=== PATIENT | male | born 1955 | race Two or more races ===

== ENCOUNTER 2016-09-18 07:22 | Emergency (ER) | payer MEDICAID, OTHER ==
[~2016-09-18] VITALS: Wt 96.0 kg
[~2016-09-18 07:22] MED LIST: HYDR-906 PO; IBUP-1542 PO; NAPR-260 PO; PRED20TA PO; RTPRO; TRAM50TA2 PO
[2016-09-18] MEDS ORDERED: DEXAMETHASONE 10 MG/ML 1 ML INJ IM STA (08:20)
[2016-09-18] MEDS ORDERED: LEVALBUTEROL (NEB) 1.25 MG/0.5 ML AMP INH STA (08:20)
[2016-09-18] MEDS ORDERED: LEVALBUTEROL (NEB) 1.25 MG/0.5 ML AMP ONE (08:22)
--- NOTE | 2016-09-18 08:45 | ERD ---
ER Documentation Chief Complaint Date/Time DATE: 09/18/16 TIME: 08:33 Chief Complaint cough congestion and phleghm for 1 wk. no cp. no access mucle use HPI 60 year old male presents to ER with cough and nasal congestion x 1 week. Patient states cough is productive at times with clear sputum. Non bloody sputum. History of asthma and has been using Ventolin inhaler more frequently. Patient states cough is worse at night when he lays down. No shortness of breath or difficulty breathing. No chest pain. No sore throat or difficulty swallowing. Patient states he has similar symptoms to this at least once per year and receives a "cortisone shot" and he is better for the rest of the year. No fevers or chills. ROS All systems reviewed and are negative except as per history of present illness. Medications Home Meds Active Scripts Cetirizine Hcl* (Zyrtec*) 10 Mg Capsule, 10 MG PO DAILY, #10 TAB.CHEW Prov:SANDRO DEMPSEY NP 09/18/16 Prednisone* (Prednisone*) 20 Mg Tab, 40 MG PO DAILY for 4 Days, TAB Prov:SANDRO DEMPSEY NP 09/18/16 Albuterol Sulfate* (Proair HFA*) 8.5 Gm Hfa.aer.ad, 2 PUFF INH Q4, #1 INHALER Prov:SANDRO DEMPSEY NP 09/18/16 Prednisone* (Prednisone*) 20 Mg Tab, 40 MG PO DAILY for 4 Days, TAB Prov:SANDRO DEMPSEY NP 04/25/16 Hydrocodone/Acetaminophen ([place] 5-325 Tablet) 1 Each Tablet, 1 TAB PO Q6H Y for PAIN, #12 TAB Prov:MAX ROMAN PA-C 04/23/16 Tramadol HCl (Tramadol HCl) 50 Mg Tablet, 50 MG PO Q4 Y for PAIN, #20 TAB Prov:MAX ROMAN PA-C 04/23/16 Naproxen* (Naprosyn*) 500 Mg Tablet, 500 MG PO BID Y for PAIN AND/OR INFLAMMATION, #30 TAB Prov:KARI MILLER PA-C 07/01/15 Ibuprofen* (Motrin*) 600 Mg Tab, 600 MG PO Q6, #30 TAB Prov:WILLIAM ROSADO 06/20/15 Reported Medications Albuterol Sulfate* (Proventil* Neb) 3 Ml Nebu 08/16/09 Allergies Allergies: Coded Allergies: No Known Allergies (Verified Allergy, Mild, 07/01/15) PMhx/Soc History of Surgery: Yes (Meniscal tear repair) Anesthesia Reaction: No Hx Neurological Disorder: No Hx Respiratory Disorders: No Hx Cardiac Disorders: No Hx Psychiatric Problems: No Hx Miscellaneous Medical Probl: No Hx Alcohol Use: No Hx Substance Use: No Hx Tobacco Use: No Smoking Status: Never smoker Physical Exam Vitals Vital Signs Date Time Temp Pulse Resp B/P Pulse Ox O2 Delivery O2 Flow Rate FiO2 09/18/16 08:27 84 17 95 21 09/18/16 07:27 97.8 81 20 103/58 96 Physical Exam Const: Alert, [id number], smiling during exam Head: Atraumatic Eyes: Normal Conjunctiva ENT: Normal External Ears, Nose and Mouth. TMs normal bilaterally. No erythema or exudate posterior pharynx. Neck: Full range of motion..~ No meningismus. Resp: Clear to auscultation bilaterally. No wheezing, rhonchi or crackles. No labored breathing or stridor. No accessory muscle use. Cardio: Regular rate and rhythm, no murmurs Abd: Soft, non tender, non distended. Normal bowel sounds Skin: No petechiae or rashes Back: No midline or flank tenderness Ext: No cyanosis, or edema Neur: Awake and alert Psych: Normal Mood and Affect Results 24 hrs Current Medications Medications (Trade) Dose Ordered Sig/Martha Route PRN Reason Start Time Stop Time Status Last Admin Dose Admin Dexamethasone (Decadron) 10 mg ONCE STAT IM 09/18/16 08:20 09/18/16 08:21 DC 09/18/16 08:30 Levalbuterol (Xopenex Neb) 1.25 mg ONCE STAT INH 09/18/16 08:20 09/18/16 08:21 DC 09/18/16 08:26 Levalbuterol (Xopenex Neb) 1.25 mg STK-MED ONCE .ROUTE 09/18/16 08:22 09/18/16 08:23 DC Procedures/MDM ED COURSE: The patient was stable throughout ED course. I kept the patient and/or family informed of laboratory and diagnostic imaging results throughout the ED course. Xopenex breathing treatment. Decadron given MDM: This is a 60-year-old male who presents to the emergency department for cough and nasal congestion 1 week. No fevers or chills. No signs or symptoms of respiratory distress. Lung exam is unremarkable. ENT exam is unremarkable. No wheezing. Oxygen saturation 96% on room air. No labored breathing or stridor. No accessory muscle use. Patient denies chest pain or back pain. Patient states he is using his Ventolin inhaler or frequently at home. Patient states cough is worse at night when he lays down. Patient states he has similar symptoms once a year. Patient is requesting "cortisone shot" patient is given Xopenex breathing treatment and given Decadron 10 mg IM. Vital signs remained stable. Upon reassessment, patient states he is feeling much better. Low suspicion for pneumonia, pleural effusion or pneumothorax. Differential diagnosis includes but not limited to URI, influenza, asthma exacerbation or bronchitis.. Patient is appropriate for outpatient management and will be given prescription for pro-air inhaler, prednisone and Zyrtec. Instructed patient to follow-up with primary care provider in the next 2-3 days for reassessment and additional management. Return to ED for any high fever, chest pain, difficulty breathing, shortness breath, wheezing, vomiting, diarrhea, abdominal pain or any new or worsening symptoms. Patient verbalizes understanding. All questions answered at discharge. Departure Diagnosis: Primary Impression: URI (upper respiratory infection) URI type: unspecified viral URI Qualified Code: J06.9 - Viral upper respiratory tract infection Condition: Stable SANDRO DEMPSEY NP Sep 18, 2016 08:44
[2016-09-18] MEDS ORDERED: PRED20TA PO (09:05)
[2016-09-18] MEDS ORDERED: CETI10CA PO (09:05)
[2016-09-18] MEDS ORDERED: ALBU8.5H3 INH (09:05)
== END 2016-09-18 09:17 | disposition home or self-care (01) ==
LOC: FTE 07:22
DX: J06.9 Acute upper respiratory infection, unspecified (principal)
CPT/HCPCS: 94664; 96372; J1100; Z7502; Z7610

== ENCOUNTER 2016-12-01 08:25 | Emergency (ER) | payer MEDICAID ==
[~2016-12-01] VITALS: Ht 167.6 cm; Wt 95.5 kg
[~2016-12-01 08:25] MED LIST changes: +ALBU8.5H3 INH; +CETI10CA PO
[2016-12-01 08:27] VITALS: Ht 167.6 cm; Wt 95.5 kg
[2016-12-01] MEDS ORDERED: KETOROLAC 30 MG INJ IM STA (08:42)
[2016-12-01] MEDS ORDERED: HYDROCODONE/APAP (5/325) TAB PO ONE (09:00)
[2016-12-01] MEDS ORDERED: HYDR-906 PO (09:10)
--- NOTE | 2016-12-01 09:23 | ERD ---
ER Documentation Chief Complaint Date/Time DATE: 12/01/16 TIME: 09:20 Chief Complaint right knee pain x 3 days HPI 61-year-old male comes in with right-sided knee pain for the past 3 days. Patient reports that he has had an arthroscopic surgery on the left knee, and patient has also been evaluated by an orthopedist about a year ago on the right knee and has been told that he may need cortisone injections. He states that he was out doing some work the other day and he has developed some pain and has not gone away for the last 3 days. He has not had any recent trauma, is diffuse in the knee, worse with any weightbearing and better with rest. Patient reports is better with flexion. He has not had any fever with this. ROS All systems reviewed and are negative except as per history of present illness. Medications Home Meds Active Scripts Hydrocodone/Acetaminophen ([place] 5-325 Tablet) 1 Each Tablet, 1 TAB PO Q6H Y for PAIN, #20 TAB Prov:MAX ROMAN PA-C 12/01/16 Cetirizine Hcl* (Zyrtec*) 10 Mg Capsule, 10 MG PO DAILY, #10 TAB.CHEW Prov:SANDRO DEMPSEY NP 09/18/16 Prednisone* (Prednisone*) 20 Mg Tab, 40 MG PO DAILY for 4 Days, TAB Prov:SANDRO DEMPSEY NP 09/18/16 Albuterol Sulfate* (Proair HFA*) 8.5 Gm Hfa.aer.ad, 2 PUFF INH Q4, #1 INHALER Prov:SANDRO DEMPSEY NP 09/18/16 Prednisone* (Prednisone*) 20 Mg Tab, 40 MG PO DAILY for 4 Days, TAB Prov:SANDRO DEMPSEY NP 04/25/16 Hydrocodone/Acetaminophen ([place] 5-325 Tablet) 1 Each Tablet, 1 TAB PO Q6H Y for PAIN, #12 TAB Prov:MAX ROMAN PA-C 04/23/16 Tramadol HCl (Tramadol HCl) 50 Mg Tablet, 50 MG PO Q4 Y for PAIN, #20 TAB Prov:MAX ROMAN PA-C 04/23/16 Naproxen* (Naprosyn*) 500 Mg Tablet, 500 MG PO BID Y for PAIN AND/OR INFLAMMATION, #30 TAB Prov:KARI MILLER PA-C 07/01/15 Ibuprofen* (Motrin*) 600 Mg Tab, 600 MG PO Q6, #30 TAB Prov:WILLIAM ROSADO 06/20/15 Reported Medications Albuterol Sulfate* (Proventil* Neb) 3 Ml Nebu 08/16/09 Allergies Allergies: Coded Allergies: No Known Allergies (Verified Allergy, Mild, 07/01/15) PMhx/Soc History of Surgery: Yes (Meniscal tear repair) Anesthesia Reaction: No Hx Neurological Disorder: No Hx Respiratory Disorders: No Hx Cardiac Disorders: No Hx Psychiatric Problems: No Hx Miscellaneous Medical Probl: No Hx Alcohol Use: No Hx Substance Use: No Hx Tobacco Use: No Physical Exam Vitals Vital Signs Date Time Temp Pulse Resp B/P Pulse Ox O2 Delivery O2 Flow Rate FiO2 12/01/16 08:27 97.6 91 18 120/69 96 Physical Exam General: Well-developed, well-nourished. The patient appears in no acute distress. HEENT: Head is normocephalic, atraumatic. No scleral icterus. Neck: Supple. Nontender. Lungs: Clear to auscultation. Normal air movement. Heart: Regular rate and rhythm. S1 and S2 are normal. No murmurs, gallops, or rubs. Abdomen: Nondistended. Extremities: There is prepatellar swelling on the right knee, he is able to flex the knee to 90, patient does have difficulty with extension due to pain. There is no erythema or warmth. Negative Homans sign. Neurologic: Alert and oriented 3. No focal deficits. Normal speech and gait. Skin: Normal turgor. No rash or lesions. Results 24 hrs Current Medications Medications (Trade) Dose Ordered Sig/Martha Route PRN Reason Start Time Stop Time Status Last Admin Dose Admin Ketorolac Tromethamine (Toradol) 30 mg ONCE STAT IM 12/01/16 08:42 12/01/16 08:43 DC 12/01/16 09:05 Acetaminophen/ Hydrocodone Bitart ([place] (5/325)) 1 tab ONCE ONCE PO 12/01/16 09:00 12/01/16 09:01 DC 12/01/16 09:05 Procedures/MDM ED course: I am at this time I offered the patient x-rays of the knee, he states that he has had an x-ray about a year ago and reports that he discussed the findings with his orthopedist who recommended cortisone. He at this time was wondering if it would be possible to order an MRI, he does have his knee flexed in baseline position, he does not show any signs of septic arthritis I am doubtful that there is an abscess, septic joint or osteomyelitis. Given this I have asked him to follow-up with his orthopedist, progress further advanced imaging may be done with them and it can be done outpatient. He asks for pain control, he was given Toradol 30 mg IM, he was also given [place] 10/325 mg. MDM: 7-year-old male comes in with right-sided knee pain, likely due to chronic changes. There are no emergent signs or symptoms of an infectious origin or limb threatening process, and his pain is in the knee joint, there is no evidence of DVT on examination. I have asked him to follow-up with his orthopedist outpatient for further evaluation. He will be given a short course of [place] for pain control. Departure Diagnosis: Primary Impression: Knee pain Condition: Good Patient Instructions: Knee Pain, Uncertain Cause Additional Instructions: Call your ORTHOPEDIST TOMORROW for an appointment during the next 1 WEEK.See the doctor sooner or return here if your condition worsens before your appointment time. MAX ROMAN PA-C December 01, 2016 09:23
== END 2016-12-01 09:22 | disposition home or self-care (01) ==
LOC: FTE 08:25
DX: M25.561 Pain in right knee (principal)
CPT/HCPCS: 96372; J1885; Z7502; Z7610

== ENCOUNTER 2017-05-14 09:59 | Emergency (ER) | payer MEDICAID ==
[~2017-05-14] VITALS: Ht 167.6 cm; Wt 96.6 kg
[2017-05-14 10:06] VITALS: Ht 167.6 cm; Wt 96.6 kg
[2017-05-14] MEDS ORDERED: ACYC800T57 PO (10:43)
[2017-05-14] MEDS ORDERED: PRED20TA PO (10:43)
--- NOTE | 2017-05-14 10:45 | ERD ---
ER Documentation Chief Complaint Chief Complaint Complains of right sided facial pain x 3 days ago HPI 7-year-old male complains of some sensation of numbness and weakness on the right side of his face for the last 3 days. Denies any recent URIs although has a chronic cough. He states he had something similar several years ago and was told it was a virus. Denies any bowel or bladder incontinence, weakness of extremities, visual changes, fevers, vomiting. ROS All systems reviewed and are negative except as per history of present illness. Medications Home Meds Active Scripts Acyclovir* (Zovirax*) 800 Mg Tablet, 800 MG PO TID for 5 Days, TAB Prov:SARAH LAMAS MD 05/14/17 Prednisone* (Prednisone*) 20 Mg Tab, 40 MG PO DAILY for 4 Days, TAB Prov:SARAH LAMAS MD 05/14/17 Hydrocodone/Acetaminophen ([place] 5-325 Tablet) 1 Each Tablet, 1 TAB PO Q6H Y for PAIN, #20 TAB Prov:MAX ROMAN PA-C 12/01/16 Cetirizine Hcl* (Zyrtec*) 10 Mg Capsule, 10 MG PO DAILY, #10 TAB.CHEW Prov:SANDRO DEMPSEY NP 09/18/16 Prednisone* (Prednisone*) 20 Mg Tab, 40 MG PO DAILY for 4 Days, TAB Prov:SANDRO DEMPSEY NP 09/18/16 Albuterol Sulfate* (Proair HFA*) 8.5 Gm Hfa.aer.ad, 2 PUFF INH Q4, #1 INHALER Prov:SANDRO DEMPSEY NP 09/18/16 Prednisone* (Prednisone*) 20 Mg Tab, 40 MG PO DAILY for 4 Days, TAB Prov:SANDRO DEMPSEY NP 04/25/16 Hydrocodone/Acetaminophen ([place] 5-325 Tablet) 1 Each Tablet, 1 TAB PO Q6H Y for PAIN, #12 TAB Prov:MAX ROMAN PA-C 04/23/16 Tramadol HCl (Tramadol HCl) 50 Mg Tablet, 50 MG PO Q4 Y for PAIN, #20 TAB Prov:MAX ROMAN PA-C 04/23/16 Naproxen* (Naprosyn*) 500 Mg Tablet, 500 MG PO BID Y for PAIN AND/OR INFLAMMATION, #30 TAB Prov:KARI MILLERC 07/01/15 Ibuprofen* (Motrin*) 600 Mg Tab, 600 MG PO Q6, #30 TAB Prov:WILLIAM ROSADO 06/20/15 Reported Medications Albuterol Sulfate* (Proventil* Neb) 3 Ml Nebu 08/16/09 Allergies Allergies: Coded Allergies: No Known Allergies (Verified Allergy, Mild, 05/14/17) PMhx/Soc History of Surgery: Yes (Meniscal tear repair) Anesthesia Reaction: No Hx Neurological Disorder: No Hx Respiratory Disorders: No Hx Cardiac Disorders: No Hx Psychiatric Problems: No Hx Miscellaneous Medical Probl: Yes (daibetes mellitus) Hx Alcohol Use: No Hx Substance Use: No Hx Tobacco Use: No Smoking Status: Never smoker Physical Exam Vitals Vital Signs Date Time Temp Pulse Resp B/P Pulse Ox O2 Delivery O2 Flow Rate FiO2 05/14/17 10:06 96.6 85 20 146/64 95 Physical Exam Const: [], [id number]., Pleasant. Head: Atraumatic Eyes: Normal Conjunctiva. Eyes PERRLA and extraocular movements intact. ENT: Normal External Ears, Nose and Mouth. Neck: Full range of motion..~ No meningismus. Resp: Clear to auscultation bilaterally Cardio: Regular rate and rhythm, no murmurs Abd: Soft, non tender, non distended. Normal bowel sounds Skin: No petechiae or rashes Back: No midline or flank tenderness Ext: No cyanosis, or edema Neur: Awake and alert and right peripheral cranial nerve VII palsy. No cerebellar signs. Normal gait. Psych: Normal Mood and Affect Procedures/MDM Presents with signs and symptoms of Zheng's palsy. No appreciable signs or symptoms of meningitis, central lesions, additional emergent causes of presenting complaints. We treated with prednisone, acyclovir , primary care follow-up, return precautions and further observation at home. Patient is advised to cover eye at night, use eye wetting drops recheck for new or worsening symptoms or as directed with primary care doctor. The patient was stable with no new complaints during the ER course. Clinically, there is no current evidence to suggest meningitis, sepsis, acute abdomen, pneumonia, acute coronary syndrome, pulmonary embolism, or any other emergent condition appearing to require further evaluation or hospitalization. The patient should certainly return for any new or worsening symptoms per the aftercare instructions. They should otherwise follow-up with her primary care doctor for reevaluation this week. Departure Diagnosis: Primary Impression: Zheng's palsy Condition: Stable Patient Instructions: Zheng's Palsy Additional Instructions: May uncover eye at night and use artificial tears. Recheck with primary doctor or for new or worsening symptoms. SARAH LAMAS MD May 14, 2017 10:45
== END 2017-05-14 10:57 | disposition home or self-care (01) ==
LOC: FTE 09:59
DX: G51.0 Bell's palsy (principal); E11.9 Type 2 diabetes mellitus without complications
CPT/HCPCS: 99284

== ENCOUNTER 2017-06-16 20:36 | Emergency (ER) | payer MEDICAID ==
[~2017-06-16] VITALS: Ht 172.7 cm; Wt 99.0 kg
[~2017-06-16 20:36] MED LIST changes: +ACYC800T57 PO
[2017-06-16 21:04] VITALS: Ht 172.7 cm; Wt 99.0 kg
--- NOTE | 2017-06-16 21:30 | ERD ---
ER Documentation Chief Complaint Chief Complaint RIGHT LL SWELLING WITH PAIN ON CALF, DENIES CARDIAC PROBLEMS, +LETHARGY HPI Otherwise healthy 7-year-old male presenting with the chief complaints of right lower extremity pain and swelling 4 days. Describes pain 3/10 and worse with walking. Denies trauma, fever, similar symptoms in past, opening in skin. No recent travel. Has not taken any medications to relieve the symptoms. No daily medications. No other complaints describes no other associated manifestations. ROS All systems reviewed and are negative except as per history of present illness. Medications Home Meds Active Scripts Acyclovir* (Zovirax*) 800 Mg Tablet, 800 MG PO TID for 5 Days, TAB Prov:SARAH COBURN MD 05/14/17 Prednisone* (Prednisone*) 20 Mg Tab, 40 MG PO DAILY for 4 Days, TAB Prov:SARAH COBURN MD 05/14/17 Hydrocodone/Acetaminophen ([place] 5-325 Tablet) 1 Each Tablet, 1 TAB PO Q6H Y for PAIN, #20 TAB Prov:MAX ROMAN PA-C 12/01/16 Cetirizine Hcl* (Zyrtec*) 10 Mg Capsule, 10 MG PO DAILY, #10 TAB.CHEW Prov:SANDRO DEMPSEY NP 09/18/16 Prednisone* (Prednisone*) 20 Mg Tab, 40 MG PO DAILY for 4 Days, TAB Prov:SANDRO DEMPSEY NP 09/18/16 Albuterol Sulfate* (Proair HFA*) 8.5 Gm Hfa.aer.ad, 2 PUFF INH Q4, #1 INHALER Prov:SANDRO DEMPSEY NP 09/18/16 Prednisone* (Prednisone*) 20 Mg Tab, 40 MG PO DAILY for 4 Days, TAB Prov:SANDRO DEMPSEY NP 04/25/16 Hydrocodone/Acetaminophen ([place] 5-325 Tablet) 1 Each Tablet, 1 TAB PO Q6H Y for PAIN, #12 TAB Prov:MAX ROMAN PA-C 04/23/16 Tramadol HCl (Tramadol HCl) 50 Mg Tablet, 50 MG PO Q4 Y for PAIN, #20 TAB Prov:MAX ROMAN PA-C 04/23/16 Naproxen* (Naprosyn*) 500 Mg Tablet, 500 MG PO BID Y for PAIN AND/OR INFLAMMATION, #30 TAB Prov:KARI MILLER PA-C 07/01/15 Ibuprofen* (Motrin*) 600 Mg Tab, 600 MG PO Q6, #30 TAB Prov:WILLIAM ROSADO Patricia 06/20/15 Reported Medications Albuterol Sulfate* (Proventil* Neb) 3 Ml Nebu 08/16/09 Allergies Allergies: Coded Allergies: No Known Allergies (Verified Allergy, Mild, 06/16/17) PMhx/Soc History of Surgery: Yes (Meniscal tear repair) Anesthesia Reaction: No Hx Neurological Disorder: No Hx Respiratory Disorders: No Hx Cardiac Disorders: No Hx Psychiatric Problems: No Hx Miscellaneous Medical Probl: Yes (daibetes mellitus) Hx Alcohol Use: No Hx Substance Use: No Hx Tobacco Use: No Physical Exam Vitals Vital Signs Date Time Temp Pulse Resp B/P Pulse Ox O2 Delivery O2 Flow Rate FiO2 06/16/17 21:04 97.0 76 20 126/66 96 Physical Exam Const: Overweight 7-year-old male in NAD Head: Atraumatic Eyes: Normal Conjunctiva ENT: Normal External Ears, Nose and Mouth. Neck: Full range of motion..~ No meningismus. Resp: Clear to auscultation bilaterally Cardio: Regular rate and rhythm, no murmurs Abd: Soft, non tender, non distended. Normal bowel sounds Back: No midline or flank tenderness Ext: Mild swelling of the left lower extremity. No tenderness to palpation. No warmth. No rash. No TTP. Neur: Awake and alert Psych: Normal Mood and Affect Procedures/MDM Overweight but otherwise healthy 61-year-old male presents with a chief complaint of left lower extremity swelling. Presented the case my attending Dr. Coburn. Ultrasound was ordered and read as unremarkable. No tenderness palpation on physical exam. No erythema or warmth to suggest infection. I have no suspicion for cellulitis, other SBI, DVT, or other neurovascular compromise. Most likely diagnosis is pointed unknown etiology. I reviewed the case my attending who agrees with the assessment and plan. I have instructed the patient follow-up with his PCP in the next 2-3 days. Patient is stable and appropriate for discharge. Departure Diagnosis: Primary Impression: Swelling Condition: Stable Additional Instructions: Follow up with your PCP within the next 1-3 days for a more thorough evaluation and a possible referral to a specialist. Return the the emergency department immediately if symptoms worsen or change. If you have any questions regarding medications, ask your pharmacist or us before you leave. If any adverse reactions occur while taking your medications, discontinue the treatment and return to the emergency department immediately. Take your medications as directed, and complete the entire course of treatment. Comments DOS: 06/16/2017 NUBIA OLIVEIRA PA-C Jun 16, 2017 21:30
--- NOTE | 2017-06-16 22:26 | RADRPT ---
PROCEDURE: US Lower extremity Venous. CLINICAL INDICATION: Right leg swelling TECHNIQUE: Multiple sonographic images of the right lower extremity deep venous system was obtaine d utilizing grayscale, color-flow, compressive sonography and doppler imaging with augmentation. Th e images were reviewed on a PACS workstation. COMPARISON: None. FINDINGS: There is normal compressibility and flow within the right common femoral, deep femoral, superficial femoral and popliteal veins. The deep veins the calf were incompletely visualized. IMPRESSION: No sonographic evidence for deep venous thrombosis. .Berny Douglas MD, MD Date Time Electronically viewed and signed by .Berny Douglas MD, MD on 06/16/2017 22:26 .A/
== END 2017-06-16 23:03 | disposition home or self-care (01) ==
LOC: FTE 20:36
DX: R22.42 Localized swelling, mass and lump, left lower limb (principal); E11.9 Type 2 diabetes mellitus without complications
CPT/HCPCS: 93971; Z7502; 99284

== ENCOUNTER 2017-09-18 07:56 | Emergency (ER) | END 2017-09-18 12:33 | disposition home or self-care (01) ==

== ENCOUNTER 2017-10-02 15:25 | Inpatient (IN) | END 2017-10-05 18:05 | disposition home or self-care (01) | DRG 565 ==

== ENCOUNTER 2017-12-14 18:57 | Emergency (ER) | END 2017-12-14 22:23 | disposition home or self-care (01) ==

== ENCOUNTER 2018-02-18 19:56 | Emergency (ER) | END 2018-02-18 21:39 | disposition home or self-care (01) ==

== ENCOUNTER 2018-08-18 08:09 | Inpatient (IN) | payer MEDICAID ==
[~2018-08-18] VITALS: Ht 172.7 cm; Wt 95.0 kg
[~2018-08-18 08:09] MED LIST changes: -ACYC800T57 PO; +ALBU18HF INHALATION; -ALBU8.5H3 INH; -CETI10CA PO; -HYDR-906 PO; -IBUP-1542 PO; -NAPR-260 PO; -RTPRO; -TRAM50TA2 PO
[2018-08-18 08:14] VITALS: Ht 172.7 cm; Wt 95.0 kg
[2018-08-18] MEDS ORDERED: ALBUTEROL 0.083% (NEB) 2.5 MG/3 ML AMP NEB STA (08:22)
[2018-08-18] MEDS ORDERED: predniSONE 20 MG TAB PO STA (08:22)
[2018-08-18] MEDS ORDERED: IPRATROPIUM (NEB) 0.5 MG/2.5 ML AMP NEB STA (08:22)
[2018-08-18] MEDS ORDERED: ONDANSETRON 4 MG INJ IV PRN (09:30)
[2018-08-18] MEDS ORDERED: ACETAMINOPHEN 325 MG TAB PO PRN ×2 (09:30→12:00)
--- NOTE | 2018-08-18 09:48 | ERD ---
ER Documentation Chief Complaint Chief Complaint asthma exacerbation and sob x 1 month getting worse HPI Patient is a 62-year-old male with a history of asthma who presents with shortness of breath. His asthma has been worsening over the past 1 year and since May it was even worse. He has been wheezing diffusely. He has no fevers. He has dry cough. He has had frequent courses of prednisone which helps with his wheezing but once he stops the wheezing comes back. He just finished a course of prednisone 2 days ago and is wheezing again. Upon review of old medical records the patient has multiple visits for various complaints. He does not remember the name of his primary doctor. He does not currently have a netbackup admin. ROS All systems reviewed and are negative except as per history of present illness. Medications Home Meds Active Scripts Prednisone* (Prednisone*) 20 Mg Tab, 40 MG PO DAILY for 4 Days, TAB Prov:ROSALBA PINA MD 02/18/18 Albuterol Sulfate* (Ventolin HFA*) 18 Gm Hfa.aer.ad, 2 PUFF INHALATION Q4H, #1 INHALER Prov:KARISSA KIDD PA-C 12/14/17 Prednisone* (Prednisone*) 20 Mg Tab, 40 MG PO DAILY for 4 Days, TAB Prov:KARISSA KIDD PA-C 12/14/17 Allergies Allergies: Coded Allergies: No Known Allergies (Verified Allergy, Mild, 12/14/17) PMhx/Soc Anesthesia Reaction: No Hx Neurological Disorder: No Hx Respiratory Disorders: Yes (asthma) Hx Cardiac Disorders: No Hx Psychiatric Problems: No Hx Miscellaneous Medical Probl: No Hx Alcohol Use: No Hx Substance Use: No Hx Tobacco Use: No Smoking Status: Former smoker FmHx Family History: No diabetes Physical Exam Vitals Vital Signs Date Temp Pulse Resp B/P (MAP) Pulse Ox O2 O2 Flow FiO2 Time Delivery Rate 08/18/18 Nasal 2.0 08:40 Cannula 08/18/18 Nasal 2 08:40 Cannula 08/18/18 80 20 96 Nasal 2.0 08:34 Cannula 08/18/18 2.0 08:34 08/18/18 97.7 97 22 111/64 93 08:14 (80) Physical Exam Const: Moderate distress Head: Atraumatic Eyes: Normal Conjunctiva ENT: Normal External Ears, Nose and Mouth. Neck: Full range of motion. No meningismus. Resp: Diffuse wheezing in all lung burrows Cardio: Regular rate and rhythm, no murmurs Abd: Soft, non tender, non distended. Normal bowel sounds Skin: No petechiae or rashes Back: No midline or flank tenderness Ext: No cyanosis, or edema Neur: Awake and alert Psych: Normal Mood and Affect Result Diagram: 08/18/18 0900 08/18/18 0900 Results 24 hrs Laboratory Tests Test 08/18/18 09:00 White Blood Count 8.1 10^3/ul Red Blood Count 5.58 10^6/ul Hemoglobin 17.0 g/dl Hematocrit 50.5 % Mean Corpuscular Volume 90.5 fl Mean Corpuscular Hemoglobin 30.5 pg Mean Corpuscular Hemoglobin Concent 33.7 g/dl Red Cell Distribution Width 12.8 % Platelet Count 170 10^3/UL Mean Platelet Volume 10.7 fl Immature Granulocytes % 0.500 % Neutrophils % 69.0 % Lymphocytes % 17.2 % Monocytes % 6.2 % Eosinophils % 6.9 % Basophils % 0.2 % Nucleated Red Blood Cells % 0.0 /100WBC Immature Granulocytes # 0.040 10^3/ul Neutrophils # 5.6 10^3/ul Lymphocytes # 1.4 10^3/ul Monocytes # 0.5 10^3/ul Eosinophils # 0.6 10^3/ul Basophils # 0.0 10^3/ul Nucleated Red Blood Cells # 0.0 10^3/ul Sodium Level 136 mmol/L Potassium Level 4.0 mmol/L Chloride Level 100 mmol/L Carbon Dioxide Level 27 mmol/L Anion Gap 9 Blood Urea Nitrogen 16 mg/dl Creatinine 0.78 mg/dl Est Glomerular Filtrat Rate mL/min > 60 mL/min Glucose Level 328 mg/dl Calcium Level 9.1 mg/dl Troponin I < 0.012 ng/ml Current Medications Medications Dose Sig/Martha Start Time Status Last (Trade) Ordered Route PRN Stop Time Admin Dose Reason Admin Albuterol 5 mg ONCE STAT 08/18/18 DC 08/18/18 (Proventil NEB 08:22 08/18/18 08:33 0.083% (Neb)) 08:23 Ipratropium 0.5 mg ONCE STAT 08/18/18 DC 08/18/18 [place] NEB 08:22 08/18/18 08:33 (Atrovent 08:23 0.02% (Neb)) Prednisone 60 mg ONCE STAT 08/18/18 DC (Prednisone) PO 08:22 08/18/18 08:23 Ondansetron 4 mg BRIDGE ORDER 08/18/18 HCl (Zofran PRN IV 09:30 08/19/18 Inj) NAUSEA/VOMITI 09:29 NG 650 mg ER BRIDGE 08/18/18 Acetaminophen PRN PO 09:30 08/19/18 (Tylenol .MILD PAIN 09:29 Tab) 1-3 OR TEMP Procedures/MDM Chest X-ray 1V Interpreted by me: Soft Tissue: No acute abnormalities Bones: No acute abnormalities Mediastinum/Cardiac Silhouette/Lungs: No acute abnormalities EKG read by me: Rate/Rhythm: Regular rate and rhythm at a normal rate Intervals: Normal Impression: No evidence of ischemia or arrhythmia Patient is a 62-year-old male with asthma who presents with status asthmaticus. He has failed outpatient treatment at this time as he just finished a course of steroids but is still wheezing. The patient was given albuterol, Atrovent, and prednisone but the did refuse prednisone at this time as she is concerned as he just finished the prednisone. He was told by his primary doctor that he cannot keep getting steroids as it would be bad for him. I have requested a consult from Dr. Parham from pulmonology. I spoke with Dr. Nice from the panel team for admission to a medical surgical bed. I doubt pneumonia, pneumothorax, pulmonary embolism, or acute coronary syndrome. Departure Diagnosis: Primary Impression: Status asthmaticus Asthma severity: unspecified severity Asthma persistence: unspecified Qualified Codes: J45.902 - Unspecified asthma with status asthmaticus Additional Impression: Shortness of breath Condition: ELODIA Gunter MD Aug 18, 2018 09:48
--- NOTE | 2018-08-18 11:30 | NUR ---
NURSING NOTE: Pt arrived on gurney from ER, transferred to bed on own. Pt with audible wheezing, 2L O2 nasal cannula maintained. Brandy notified that pt on floor. Waiting for orders to be placed. Pt oriented to room, call quintanilla within reach, will continue to monitor and maintained hourly rounding.
[2018-08-18] MEDS ORDERED: NACL 0.9% 3 ML SYG IV SCH (12:00)
[2018-08-18] MEDS ORDERED: METHYLPREDNISOLONE 125 MG INJ IV ONE (12:00)
[2018-08-18] MEDS: ALBUTEROL/IPRATROPIUM (NEB) 3 ML AMP HHN SCH ×3 (12:12→21:14)
--- NOTE | 2018-08-18 12:16 | HP ---
Date/Time of Note Date/Time of Note DATE: 08/18/18 TIME: 12:08 Assessment/Plan VTE Prophylaxis SCD applied (from Nsg): Yes Pharmacological prophylaxis: LMWH Lines/Catheters IV Catheter Type (from Nrsg): Saline Lock Assessment/Plan Hospital Course SUBJECTIVE: Lying in bed, having wheezing, cough and increased work of breathing. OBJECTIVE: Vital signs-see below PHYSICAL EXAM: Constitutional: Well-developed, adequately built, lying in bed with wheezing, cough and slight increased work of breathing. Psych: nl mood/affect, no complaints Head: atraumatic, normocephalic Eyes: nl conjunctiva, nl sclera ENMT: mucosa pink and moist, nl external ears & nose Neck: non-tender, supple Respiratory: +Diffuse wheezing bilaterally. [place]ER[place]OD+ Cardiovascular: nl pulses, regular rate and rhythm Gastrointestinal: non-tender, soft, bowel sounds active in all 4 quadrants. Musculoskeletal/extremities: nl extremities to inspection, motor strength equal bilaterally, no focal deficit. Normal pulses,no cyanosis, no edema. Neurological: Alert oriented 3,nl speech, nl strength Skin: nl turgor ASSESSMENT/PLAN: 62-year-old male who is also a former smoker, diagnosed with asthma 2 years ago, here with worsening wheezing, SOB, cough. 1. Severe acute asthma exacerbation. -Start [id number] BERNARD w/DuoNeb, IV Solu-Medrol, Breo elipta, Singulair -Supplemental oxygen titrate to keep SPO2 above 92%. -Chest x-ray -Pulmonary consult 2. Hyperglycemia, likely steroid-induced -Denied history of diabetes. We will also obtain A1c. -At present, recommend insulin regimen as patient will be on steroids. 3. Obesity with BMI 31.8 -Weight reduction advised DVT prophylaxis: Lovenox PUD prophylaxis: Pepcid CODE STATUS: Full code Diet: Regular. Rest of the management depend on hospital course. Approximately 60 m spent on this history and physical. Patient was seen in collaboration with Result Diagram: 08/18/18 0900 08/18/18 0900 Results 24hrs Laboratory Tests Test 08/18/18 09:00 White Blood Count 8.1 Red Blood Count 5.58 Hemoglobin 17.0 Hematocrit 50.5 Mean Corpuscular Volume 90.5 Mean Corpuscular Hemoglobin 30.5 Mean Corpuscular Hemoglobin Concent 33.7 Red Cell Distribution Width 12.8 Platelet Count 170 # Mean Platelet Volume 10.7 H Immature Granulocytes % 0.500 H Neutrophils % 69.0 Lymphocytes % 17.2 Monocytes % 6.2 Eosinophils % 6.9 Basophils % 0.2 Nucleated Red Blood Cells % 0.0 Immature Granulocytes # 0.040 H Neutrophils # 5.6 Lymphocytes # 1.4 Monocytes # 0.5 Eosinophils # 0.6 H Basophils # 0.0 Nucleated Red Blood Cells # 0.0 Sodium Level 136 Potassium Level 4.0 Chloride Level 100 Carbon Dioxide Level 27 Anion Gap 9 Blood Urea Nitrogen 16 Creatinine 0.78 Est Glomerular Filtrat Rate mL/min > 60 Glucose Level 328 H Calcium Level 9.1 Troponin I < 0.012 HPI/ROS Admit Date/Time Admit Date/Time Aug 18, 2018 at 10:51 Hx of Present Illness 82-year-old male diagnosed with asthma 2 years ago, former smoker, here with worsening wheezing, shortness of breath, and nonproductive cough despite taking his rescue nebulizer. Patient was just treated with a cortisone couple weeks ago. In the ER, patient was noted with stable labs except for blood sugar 328. No chest x-ray done. Patient was given albuterol and prednisone 60 mg p.o. in the ER and was admitted. Patient denied chest pain, palpitation, nausea, vomiting, abdominal pain, speech difficulties, vision changes, dizziness, fever, chills or other constitutional symptoms. ROS A 12 point review of system was assessed and is negative other than what is mentioned in the HPI. PMH/Family/Social Past Medical History See HPI Medications Current Medications Albuterol/ Ipratropium (Duoneb) 3 ml Q4HWA RESP THERAPY HHN ; Start 08/18/18 at 13:00 Albuterol/ Ipratropium (Duoneb) 3 ml Q2H RESP THERAPY PRN HHN WHEEZING; Start 08/18/18 at 12:00 Methylprednisolone Sodium Succinate (Solu-Medrol) 60 mg Q6 IV ; Start 08/18/18 at 18:00 Magnesium Sulfate 50 ml @ 25 mls/hr ONCE ONCE IVPB ; Start 08/18/18 at 12:00; Stop 08/18/18 at 13:59; Status UNV Fluticasone/ Vilanterol (Breo Ellipta 200-25 Mcg Inh) 1 inh DAILY INH ; Start 08/18/18 at 14:00 Coded Allergies: No Known Allergies (Verified Allergy, Mild, 08/18/18) Past Surgical History None Past Surgical Hx: other Family History Significant Family History: no pertinent family hx Social History Former smoker, quit 22 years ago. Smoking Status: Former smoker Exam/Review of Systems Vital Signs Vitals Vital Signs Date Temp Pulse Resp B/P (MAP) Pulse Ox O2 O2 Flow FiO2 Time Delivery Rate 08/18/18 98.4 88 17 116/86 93 Nasal 2.0 10:05 (96) Cannula CELIA SERRATO NP Aug 18, 2018 12:16
[2018-08-18 12:47] VITALS: BP 131/62; PULSE 78; RESP 19
[2018-08-18] MEDS: ENOXAPARIN 40 MG/0.4 ML SYG SC SCH (13:20)
[2018-08-18] MEDS ORDERED: MAGNESIUM SULFATE 2 GM/50 ML 50 ML IVPB ONE (14:00)
[2018-08-18 14:51] VITALS: BP 128/60; PULSE 82; RESP 20
[2018-08-18] MEDS: FLUTICASONE/VILANTEROL 200-25 INH DEVICE INH SCH (15:14)
--- NOTE | 2018-08-18 17:25 | CONS ---
DATE OF ADMISSION: 08/18/2018 DATE OF CONSULTATION: TYPE OF CONSULTATION: Pulmonary. REASON FOR CONSULTATION: Shortness of breath. Thank you, Dr. Holder, for this consultation. HISTORY OF PRESENT ILLNESS: This is a 62-year-old gentleman with history of asthma, poorly controlle d for the past few months, who has been on prednisone multiple times, unable to taper without exacerb ation of his symptoms. It seems as though he has been on inadequate maintenance therapy. ALLERGIES: DENIES ANY HISTORY OF ALLERGIES. SOCIAL HISTORY: He is nonsmoker. No alcohol, no history of drug use. FAMILY HISTORY: Noncontributory. PAST SURGICAL HISTORY: No prior history of intubations or mechanical ventilation. PAST MEDICAL HISTORY: Significant for asthma. No history of inhalational lung injury. PHYSICAL EXAMINATION: GENERAL: Well-nourished, well-developed gentleman, comfortable at rest, talking in full and complete sentences. No accessory muscle use. VITAL SIGNS: Currently afebrile, pulse is 80, blood pressure 128/60, O2 saturation 93% on 2 liters. NECK: Supple. No JVD. No lymphadenopathy. CARDIAC: S1, S2. No added sounds or murmurs. CHEST: Diminished air entry bilaterally. ABDOMEN: Soft, nontender. No guarding or rebound. EXTREMITIES: No cyanosis, clubbing or edema. NEUROLOGIC: Grossly intact. No focal deficits. LABORATORY DATA: White count 8.1, hemoglobin 17, platelets of 170. BUN 16, creatinine 0.78. DIAGNOSTIC DATA: Chest x-ray shows mild bibasilar atelectasis. IMPRESSION AND PLAN: Likely acute asthma exacerbation with acute hypoxemic respiratory failure, poss ible viral etiology. The patient will require: 1. Bronchodilators. 2. Steroid taper. 3. I would recommend checking rapid influenza. 4. DVT and GI prophylaxis. Dictated By: LILIANA GALVIN MD SV/NTS Conf#: [id number] DID#: [id number] CC: LORI HOLDER MD;*EndCC*
[2018-08-18] MEDS: METHYLPREDNISOLONE 125 MG INJ IV SCH (17:56)
[2018-08-18] MEDS: INSULIN ASPART [NOVOLOG] 3 ML PEN SC SCH ×2 (18:13→21:21)
--- NOTE | 2018-08-18 18:45 | RADRPT ---
Echocardiogram Report Patient Name: CASEY HEatient ID: [id number] : 1955 (62y 9m)Study Date: 08/18/2018 2:14:03 PM Gender: MAccession #: [id number] Tech: Juarez Marte [facility] Location: [address] Ref.Physician: CELIA SERRATO Height(Cm): BSA: Weight(Kg): Quality: Technically Difficult StudyAccount #: Procedures: Echocardiographic Report: Transthoracic echocardiogram with complete 2D, M-Mode, and doppler examination. Indications: Shortness of breath. Measurements: 2D/M Mode Doppler Measurement Value Normal Range Measurement Value Normal Range LVIDd 2D 3.2 [ 4.2 - 5.8 ] cm AV Peak Conrad 1.2 [ 100.0 - 170.0 ] cm/sec LVIDs 2D 2.4 [ 2.5 - 4.0 ] cm AV Peak PG 6.0 [ 2.0 - 9.0 ] mmHg LVPWd 2D 1.2 [ 0.6 - 1.0 ] cm LVOT Peak Conrad 1.0 [ 70.0 - 110.0 ] cm/sec IVSd 2D 1.2 [ 0.6 - 1.0 ] cm LVOT Peak PG 4.0 [ 2.0 - 6.0 ] mmHg AoR Diam 2D 2.6 [ 2.6 - 3.4 ] cm MV E Peak Conrad 0.5 [ 60.0 - 130.0 ] cm/sec EDV 2D 41.9 [ 62.0 - 150.0 ] ml MV A Peak Conrad 0.8 [ 100.0 - 120.0 ] cm/sec ESV 2D 19.5 [ 21.0 - 61.0 ] ml MV E/A 0.6 [ 0.8 - 1.5 ] ratio EF 2D 53.5 [ 52.0 - 72.0 ] percent MV Decel Time 232 [ 104 - 258 ] msec LA Dimen 2D 2.8 [ 3.0 - 4.0 ] cm Lat E` Conrad 0.1 [ 10.0 - 15.0 ] cm/sec Lateral E/E` 5.9 [ 1.0 - 2.0 ] ratio Med E` Conrad 0.1 cm/sec MV E/A 0.6 [ 0.8 - 1.5 ] ratio TR Peak Conrad 2.2 [ 100.0 - 280.0 ] cm/sec TR Peak PG 20.0 mmHg RVSP 23.0 [ 10.0 - 36.0 ] mmHg Findings: Left Ventricle: Normal left ventricular systolic function. Normal left ventricular cavity size. Mild concentric left ventricular hypertrophy. Ejection fraction is visually estimated at 60 %. Tissue Doppler/Mitral Doppler indices are consistent with impaired relaxation (Stage I diastolic dysfunction). Right Ventricle: Normal right ventricular size. Normal right ventricular systolic function. Left Atrium: The left atrium is normal in size. Right Atrium: The right atrium is normal in size. Mitral Valve: Mild mitral leaflet calcification. Mild mitral annular calcification. Trace mitral regurgitation. Aortic Valve: Aortic valve not well visualized. Aortic cusps appear mildly calcified. Tricuspid Valve: Normal appearance of the tricuspid valve. Estimated peak PA systolic pressure 23 mmHg. There is trace tricuspid regurgitation. Pulmonic Valve: Pulmonic valve not well visualized. Pericardium: Normal pericardium with no significant pericardial effusion. Aorta: Normal aortic root. IVC: Normal size and normal respiratory collapse consistent with normal right atrial pressure. Conclusions: Normal left ventricular systolic function. Normal left ventricular cavity size. Mild concentric left ventricular hypertrophy. Ejection fraction is visually estimated at 60 %. Tissue Doppler/Mitral Doppler indices are consistent with impaired relaxation (Stage I diastolic dysfunction). Mild mitral leaflet calcification. Mild mitral annular calcification. Trace mitral regurgitation. Normal appearance of the tricuspid valve. Estimated peak PA systolic pressure 23 mmHg. There is trace tricuspid regurgitation. Electronically Signed By: Jeremy White 2018-08-18 18:44:28 PST
--- NOTE | 2018-08-18 18:55 | NUR ---
END OF SHIFT NOTE: Pt with no complaints of pain. Pt with continued wheezing and SOB with exertion, 2L O2 maintained. AccuCheck started at dinner, insulin given per sliding scale. VSS, call quintanilla within reach, hourly rounding maintained.
[2018-08-18 19:55] VITALS: BP 117/71; PULSE 80; RESP 20
[2018-08-18] MEDS: MONTELUKAST 10 MG TAB PO SCH (21:25)
[2018-08-18] MEDS: FAMOTIDINE 20 MG TAB PO SCH (21:25)
[2018-08-18] MEDS ORDERED: INSULIN ASPART [NOVOLOG] 3 ML PEN SC ONE (21:30)
--- NOTE | 2018-08-18 21:58 | NUR ---
RN NOTES blood sugar was elevated [address] Duncan ordered to give additional 6 unit s of novolog. To give NPH at midnight together with the solumedrol. Plan of care discuss to patient and .
[2018-08-19] MEDS ORDERED: NPH, HUMAN INSULIN ISOPHANE 3ML VIAL SC ONE
--- NOTE | 2018-08-19 00:34 | NUR ---
RN NOTES Patient refused the 30 mg Solumedrol and the 5 Units NPH. He stated that his breathing better now. Notified Dr Lr
[2018-08-19] MEDS: ACCU-CHEK XX SCH (02:00)
[2018-08-19 02:17] VITALS: BP 115/72; PULSE 77; RESP 17
[2018-08-19] MEDS ORDERED: INSULIN ASPART [NOVOLOG] 3 ML PEN SC ONE ×2 (02:30→22:30)
--- NOTE | 2018-08-19 02:30 | NUR ---
RN NOTES Blood sugar was [address] reyes ordered to give 6 units of Novolog
--- NOTE | 2018-08-19 05:53 | NUR ---
EOSS Patient alert, oriented no complained of pain. Vital sign stable on 2 Liters of O2 Breathing treatment given. Patient refused to have solumedrol due multiple side effects, explained the benefits for the asthma but still refused. BS was high MD awared covered with Trulilog. All needs attended, call light is within reach.
[2018-08-19] MEDS: METHYLPREDNISOLONE 125 MG INJ IV SCH ×2 (06:00)
[2018-08-19] MEDS: ALBUTEROL/IPRATROPIUM (NEB) 3 ML AMP HHN PRN (07:48)
[2018-08-19 08:02] VITALS: BP 116/71; PULSE 109; RESP 18
[2018-08-19] MEDS: INSULIN ASPART [NOVOLOG] 3 ML PEN SC SCH ×4 (08:44→21:22)
[2018-08-19] MEDS: FAMOTIDINE 20 MG TAB PO SCH ×2 (08:45→21:15)
[2018-08-19] MEDS: ENOXAPARIN 40 MG/0.4 ML SYG SC SCH (08:45)
[2018-08-19] MEDS: FLUTICASONE/VILANTEROL 200-25 INH DEVICE INH SCH (08:45)
[2018-08-19] MEDS: ALBUTEROL/IPRATROPIUM (NEB) 3 ML AMP HHN SCH ×4 (09:00→20:43)
--- NOTE | 2018-08-19 13:46 | CONS ---
Consult Date/Type/Reason Admit Date/Time Aug 18, 2018 at 10:51 Initial Consult Date Type of Consultation: Pulm Date/Time of Note DATE: 08/19/18 TIME: 13:44 Subjective Still mildly dyspneic with wheezing. Objective Vitals Vital Signs Date Temp Pulse Resp B/P (MAP) Pulse Ox O2 O2 Flow FiO2 Time Delivery Rate 08/19/18 104 22 92 13:29 08/19/18 97.3 116/71 Room Air 08:02 (86) 08/19/18 2.0 01:50 Intake and Output 08/18/18 08/18/18 08/19/18 1515:00 23:00 07:00 IntakeIntake Total 560 ml 500 ml OutputOutput Total 3 ml BalanceBalance 557 ml 500 ml Exam HEENT: Neck supple; no JVD; no LAD CVS: RRR, S1 and S2 CHEST: + exp wheezing b/l ABD: Soft, NT, + BS EXT: No c/c/e Results/Medications Result Diagram: 08/19/18 0455 08/19/18 0455 Results 24 hrs Laboratory Tests Test 08/18/18 17:54 08/18/18 20:54 08/19/18 00:14 08/19/18 02:12 Bedside Glucose 312 H 447 *H 316 H 315 H Test 08/19/18 04:55 08/19/18 08:37 08/19/18 12:54 White Blood Count 15.8 #H Red Blood Count 5.54 Hemoglobin 16.7 Hematocrit 50.0 Mean Corpuscular Volume 90.3 Mean Corpuscular 30.1 Hemoglobin Mean Corpuscular 33.4 Hemoglobin Concent Red Cell Distribution 12.6 Width Platelet Count 197 Mean Platelet Volume 10.3 Immature Granulocytes % 0.600 H Neutrophils % 92.8 H Lymphocytes % 5.6 L Monocytes % 0.9 Eosinophils % 0.0 Basophils % 0.1 Nucleated Red Blood 0.0 Cells % Immature Granulocytes # 0.100 H Neutrophils # 14.7 H Lymphocytes # 0.9 Monocytes # 0.1 L Eosinophils # 0.0 Basophils # 0.0 Nucleated Red Blood 0.0 Cells # Sodium Level 138 Potassium Level 4.4 Chloride Level 102 Carbon Dioxide Level 24 Anion Gap 12 Blood Urea Nitrogen 18 Creatinine 0.87 Est Glomerular Filtrat > 60 Rate mL/min Glucose Level 287 H Hemoglobin A1c 8.6 H Calcium Level 9.7 Phosphorus Level 2.3 L Magnesium Level 2.4 Total Bilirubin 1.0 Direct Bilirubin 0.00 Indirect Bilirubin 1.0 Aspartate Amino 21 Transf (AST/SGOT) Alanine 22 Aminotransferase (ALT/SG PT) Alkaline Phosphatase 136 H Total Protein 7.3 Albumin 4.2 Globulin 3.10 Albumin/Globulin Ratio 1.35 Triglycerides Level 69 Cholesterol Level 188 LDL Cholesterol, 121 Calculated HDL Cholesterol 53 Cholesterol/HDL Ratio 3.5 Thyroid Stimulating 0.100 L Hormone (TSH) Bedside Glucose 260 H 234 H Home Meds Active Scripts Albuterol Sulfate* (Ventolin HFA*) 18 Gm Hfa.aer.ad, 2 PUFF INHALATION Q4H, #1 INHALER Prov:KARISSA KIDD PA-C 12/14/17 Discontinued Scripts Prednisone* (Prednisone*) 20 Mg Tab, 40 MG PO DAILY for 4 Days, TAB Prov:ROSALBA PINA MD 02/18/18 Prednisone* (Prednisone*) 20 Mg Tab, 40 MG PO DAILY for 4 Days, TAB Prov:KARISSA KIDD PA-C 12/14/17 Medications Current Medications Albuterol/ Ipratropium (Duoneb) 3 ml Q4HWA RESP THERAPY HHN Last administered on 08/19/18 13:29; Admin Dose 3 ML; Start 08/18/18 at 13:00 Albuterol/ Ipratropium (Duoneb) 3 ml Q2H RESP THERAPY PRN HHN WHEEZING Last administered on 08/19/18 07:48; Admin Dose 3 ML; Start 08/18/18 at 12:00 Methylprednisolone Sodium Succinate (Solu-Medrol) 60 mg Q6 IV Last administered on 08/18/18at 17:56; Admin Dose 60 MG; Start 08/18/18 at 18:00 Fluticasone/ Vilanterol (Breo Ellipta 200-25 Mcg Inh) 1 inh DAILY INH Last administered on 08/18/18 15:14; Admin Dose 1 INH; Start 08/18/18 at 14:00 IV Flush (NS 3 ml) 3 ml PER PROTOCOL IV ; Start 08/18/18 at 12:00 Acetaminophen (Tylenol Tab) 650 mg Q6H PRN PO .PAIN 1-3 OR TEMP; Start 2/8/19 at 12:00 Famotidine (Pepcid) 20 mg Q12 PO Last administered on 08/18/18at 21:25; Admin Dose 20 MG; Start 08/18/18 at 21:00 Enoxaparin Sodium (Lovenox) 40 mg DAILY SC Last administered on 08/18/18at 13:20; Admin Dose 40 MG; Start 08/18/18 at 12:00 Diagnostic Test (Pha) (Accu-Chek) 1 02 XX ; Start 08/19/18 at 02:00 Insulin Aspart (Novolog Insulin Pen) NOVOLOG *MODERATE* ALGORITHM WITH MEALS BEDTIME SC Last administered on 08/19/18at 12:58; Admin Dose 6 UNIT; Start 08/18/18 at 17:55 Montelukast Sodium (Singulair) 10 mg HS PO Last administered on 08/18/18at 21:25; Admin Dose 10 MG; Start 08/18/18 at 21:00 Assessment/Plan Assessment/Plan (Daily) IMP: 1. Acute Asthma Exacerbation RECS: 1. Taper solumedrol 2. Need to ensure appropriate outpatient controller regimen to include ICS/LABA and LTRA FROLIAN TIPTON MD Aug 19, 2018 13:46
[2018-08-19 14:00] VITALS: BP 118/68; PULSE 85; RESP 18
--- NOTE | 2018-08-19 14:51 | PN ---
Date/Time of Note Date/Time of Note DATE: 08/19/18 TIME: 14:27 Assessment/Plan VTE Prophylaxis Risk score (from Ns)>0 risk: 4 SCD applied (from Ns): Yes SCD contraindicated: low risk/ambulating Pharmacological prophylaxis: heparin Lines/Catheters IV Catheter Type (from Nrs): Saline Lock Assessment/Plan Problems: (1) Status asthmaticus Status: Acute Comment: With intravenous steroids he is clearing up. Hopefully he will be better enough that he can be discharged in the next 24-48 hours but will have to take a [id number] approach. Curiously I had the opportunity speak to his . His had previously worked in allergy and immunology clinic. He had previously had allergy testing which was diffusely positive but has never undergone immunotherapy. Qualifiers: Asthma severity: unspecified severity Asthma persistence: unspecified Qualified Codes: J45.902 - Unspecified asthma with status asthmaticus (2) Asthma, severe persistent Status: Chronic Comment: Improving. He will need to be on controller medications including leukotriene receptor antagonist and combo inhaled steroids with long-acting beta agonist and possibly lama drugs as well Qualifiers: Asthma complication type: with status asthmaticus Qualified Codes: J45.52 - Severe persistent asthma with status asthmaticus (3) Diabetes mellitus type 2 in obese Status: Chronic Comment: Based on his A1c this is a chronic issue. I believe that when he is not on steroids is relatively minor. He needs to be on some medications. In the meantime while receiving steroids he will receive steroid dose matched NPH (4) Obesity (BMI 30.0-34.9) Status: Chronic Comment: Counseled Result Diagram: 08/19/18 0455 08/19/18 0455 Results 24hrs Laboratory Tests Test 08/18/18 17:54 08/18/18 20:54 08/19/18 00:14 08/19/18 02:12 Bedside Glucose 312 H 447 *H 316 H 315 H Test 08/19/18 04:55 08/19/18 08:37 08/19/18 12:54 White Blood Count 15.8 #H Red Blood Count 5.54 Hemoglobin 16.7 Hematocrit 50.0 Mean Corpuscular Volume 90.3 Mean Corpuscular 30.1 Hemoglobin Mean Corpuscular 33.4 Hemoglobin Concent Red Cell Distribution 12.6 Width Platelet Count 197 Mean Platelet Volume 10.3 Immature Granulocytes % 0.600 H Neutrophils % 92.8 H Lymphocytes % 5.6 L Monocytes % 0.9 Eosinophils % 0.0 Basophils % 0.1 Nucleated Red Blood 0.0 Cells % Immature Granulocytes # 0.100 H Neutrophils # 14.7 H Lymphocytes # 0.9 Monocytes # 0.1 L Eosinophils # 0.0 Basophils # 0.0 Nucleated Red Blood 0.0 Cells # Sodium Level 138 Potassium Level 4.4 Chloride Level 102 Carbon Dioxide Level 24 Anion Gap 12 Blood Urea Nitrogen 18 Creatinine 0.87 Est Glomerular Filtrat > 60 Rate mL/min Glucose Level 287 H Hemoglobin A1c 8.6 H Calcium Level 9.7 Phosphorus Level 2.3 L Magnesium Level 2.4 Total Bilirubin 1.0 Direct Bilirubin 0.00 Indirect Bilirubin 1.0 Aspartate Amino 21 Transf (AST/SGOT) Alanine 22 Aminotransferase (ALT/SG PT) Alkaline Phosphatase 136 H Total Protein 7.3 Albumin 4.2 Globulin 3.10 Albumin/Globulin Ratio 1.35 Triglycerides Level 69 Cholesterol Level 188 LDL Cholesterol, 121 Calculated HDL Cholesterol 53 Cholesterol/HDL Ratio 3.5 Thyroid Stimulating 0.100 L Hormone (TSH) Bedside Glucose 260 H 234 H Subjective 24 Hr Interval Summary Free Text/Dictation She reports he is feeling a little bit better and breathing a little bit easier. Constitutional: no complaints (No fevers chills or sweats) Respiratory: shortness of breath, wheezing Cardiovascular: no complaints Gastrointestinal: no complaints Genitourinary: no complaints Exam/Review of Systems Exam Vitals Vital Signs Date Temp Pulse Resp B/P (MAP) Pulse Ox O2 O2 Flow FiO2 Time Delivery Rate 08/19/18 104 22 92 13:29 08/19/18 97.3 116/71 Room Air 08:02 (86) 08/19/18 2.0 01:50 Intake and Output 08/18/18 08/18/18 08/19/18 1515:00 23:00 07:00 IntakeIntake Total 560 ml 500 ml OutputOutput Total 3 ml BalanceBalance 557 ml 500 ml Constitutional: alert, oriented Respiratory: normal air movement, wheezing Cardiovascular: regular rate and rhythm, nl pulses Results Results 24hrs Laboratory Tests Test 08/18/18 17:54 08/18/18 20:54 08/19/18 00:14 08/19/18 02:12 Bedside Glucose 312 H 447 *H 316 H 315 H Test 08/19/18 04:55 08/19/18 08:37 08/19/18 12:54 White Blood Count 15.8 #H Red Blood Count 5.54 Hemoglobin 16.7 Hematocrit 50.0 Mean Corpuscular Volume 90.3 Mean Corpuscular 30.1 Hemoglobin Mean Corpuscular 33.4 Hemoglobin Concent Red Cell Distribution 12.6 Width Platelet Count 197 Mean Platelet Volume 10.3 Immature Granulocytes % 0.600 H Neutrophils % 92.8 H Lymphocytes % 5.6 L Monocytes % 0.9 Eosinophils % 0.0 Basophils % 0.1 Nucleated Red Blood 0.0 Cells % Immature Granulocytes # 0.100 H Neutrophils # 14.7 H Lymphocytes # 0.9 Monocytes # 0.1 L Eosinophils # 0.0 Basophils # 0.0 Nucleated Red Blood 0.0 Cells # Sodium Level 138 Potassium Level 4.4 Chloride Level 102 Carbon Dioxide Level 24 Anion Gap 12 Blood Urea Nitrogen 18 Creatinine 0.87 Est Glomerular Filtrat > 60 Rate mL/min Glucose Level 287 H Hemoglobin A1c 8.6 H Calcium Level 9.7 Phosphorus Level 2.3 L Magnesium Level 2.4 Total Bilirubin 1.0 Direct Bilirubin 0.00 Indirect Bilirubin 1.0 Aspartate Amino 21 Transf (AST/SGOT) Alanine 22 Aminotransferase (ALT/SG PT) Alkaline Phosphatase 136 H Total Protein 7.3 Albumin 4.2 Globulin 3.10 Albumin/Globulin Ratio 1.35 Triglycerides Level 69 Cholesterol Level 188 LDL Cholesterol, 121 Calculated HDL Cholesterol 53 Cholesterol/HDL Ratio 3.5 Thyroid Stimulating 0.100 L Hormone (TSH) Bedside Glucose 260 H 234 H Medications Medication Current Medications Albuterol/ Ipratropium (Duoneb) 3 ml Q4HWA RESP THERAPY HHN Last administered on 08/19/18 13:29; Admin Dose 3 ML; Start 08/18/18 at 13:00 Albuterol/ Ipratropium (Duoneb) 3 ml Q2H RESP THERAPY PRN HHN WHEEZING Last administered on 08/19/18 07:48; Admin Dose 3 ML; Start 08/18/18 at 12:00 Fluticasone/ Vilanterol (Breo Ellipta 200-25 Mcg Inh) 1 inh DAILY INH Last administered on 08/18/18 15:14; Admin Dose 1 INH; Start 08/18/18 at 14:00 IV Flush (NS 3 ml) 3 ml PER PROTOCOL IV ; Start 08/18/18 at 12:00 Acetaminophen (Tylenol Tab) 650 mg Q6H PRN PO .PAIN 1-3 OR TEMP; Start 08/18/18 at 12:00 Famotidine (Pepcid) 20 mg Q12 PO Last administered on 08/18/18at 21:25; Admin Dose 20 MG; Start 08/18/18 at 21:00 Enoxaparin Sodium (Lovenox) 40 mg DAILY SC Last administered on 08/18/18at 13:20; Admin Dose 40 MG; Start 08/18/18 at 12:00 Diagnostic Test (Pha) (Accu-Chek) 1 ea 02 XX ; Start 08/19/18 at 02:00 Insulin Aspart (Novolog Insulin Pen) NOVOLOG *MODERATE* ALGORITHM WITH MEALS BEDTIME SC Last administered on 08/19/18at 12:58; Admin Dose 6 UNIT; Start 08/18/18 at 17:55 Montelukast Sodium (Singulair) 10 mg HS PO Last administered on 08/18/18at 21:25; Admin Dose 10 MG; Start 08/18/18 at 21:00 Methylprednisolone Sodium Succinate (Solu-Medrol) 40 mg Q8 IV ; Start 08/19/18 at 15:00 Insulin Human NPH (Humulin N) 8 unit Q8 SC ; Start 08/19/18 at 22:00; Status ISIDRO BENOIT MD Aug 19, 2018 14:51
[2018-08-19] MEDS: METHYLPREDNISOLONE 40 MG INJ IV SCH ×2 (16:46→21:15)
[2018-08-19] MEDS: NPH, HUMAN INSULIN ISOPHANE 3ML VIAL SC SCH ×2 (16:48→21:21)
--- NOTE | 2018-08-19 17:47 | NUR ---
Nutrition consult: Pt interested in learning more about DM as he found out his A1C was 8.6. Pt also taking steroids which may have contributed to his elevated A1C. Pt meets dx criteria for type 2 DM. Pt reports to eating a lot of vegetables and fish and occasionally meat but not a lot of carbohydrates. He said that he ate a lot more during his 40s but doesn't eat much anymore. He also mostly cooks at home so he can see what ingredients go into his food. He doesn't drink beer, soda, juice, but has some Gatorade when he's working on the job and is sweating a lot. His diet was changed to a carb controlled diet. RD emphasized consuming more vegetables and being careful of carbohydrates. Related handouts provided and all nutrition related questions answered. RD remains available.
--- NOTE | 2018-08-19 18:47 | NUR ---
END OF SHIFT REPORT: Pt with no complaints of pain. Pt with continued q4 breathing treatments. AccuCheck done ACHS, NHS added to be given with SoluMedrol. Water Quality Manager to the bedside per pt request. VSS, call quintanilla within reach, hourly rounding maintained.
[2018-08-19 19:25] VITALS: BP 119/65; PULSE 89; RESP 18
[2018-08-19] MEDS: MONTELUKAST 10 MG TAB PO SCH (21:15)
[2018-08-20 02:00] VITALS: BP 117/69; PULSE 88; RESP 18
[2018-08-20] MEDS: ACCU-CHEK XX SCH ×3 (02:00→21:28)
--- NOTE | 2018-08-20 05:08 | NUR ---
END OF SHIFT NOTE: PATIENT IS A AND O X 4; NOT IN DISTRESS. VS IS WNL; ALL MEDICATIONS HAVE BEEN GIVEN ORDERED AND PRN; ALL NEEDS ATTENDED; CALL LIGHT WITHIN REACH ; WILL ENDORSE TO THE DAY SHIFT RN
[2018-08-20] MEDS: METHYLPREDNISOLONE 40 MG INJ IV SCH ×3 (06:18→21:18)
[2018-08-20] MEDS: NPH, HUMAN INSULIN ISOPHANE 3ML VIAL SC SCH ×3 (06:18→21:22)
[2018-08-20] MEDS: ALBUTEROL/IPRATROPIUM (NEB) 3 ML AMP HHN PRN (06:19)
[2018-08-20 08:07] VITALS: BP 109/69; PULSE 85; RESP 18
[2018-08-20] MEDS: INSULIN ASPART [NOVOLOG] 3 ML PEN SC SCH ×4 (08:56→21:21)
[2018-08-20] MEDS: FLUTICASONE/VILANTEROL 200-25 INH DEVICE INH SCH (08:56)
[2018-08-20] MEDS: ENOXAPARIN 40 MG/0.4 ML SYG SC SCH (08:57)
[2018-08-20] MEDS: FAMOTIDINE 20 MG TAB PO SCH ×2 (08:57→21:17)
[2018-08-20] MEDS: ALBUTEROL/IPRATROPIUM (NEB) 3 ML AMP HHN SCH ×4 (09:12→20:44)
--- NOTE | 2018-08-20 11:19 | PN ---
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 And can add in long-acting muscarinic agonist as Spiriva and follow him along. Ultimately as an outpatient once he settled down he should be evaluated for allergy testing, and whether or not he is a candidate for some of the other drugs based on immunoglobulin levels and eosinophil level Qualifiers: Asthma complication type: with status asthmaticus Qualified Codes: J45.52 - Severe persistent asthma with status asthmaticus (2) Diabetes mellitus type 2 in obese Status: Chronic Comment: Adjust medications to cover for the steroids (3) Obesity (BMI 30.0-34.9) Status: Chronic Comment: Counseled Result Diagram: 08/19/18 0455 08/19/18 0455 Results 24hrs Laboratory Tests Test 08/19/18 12:54 08/19/18 16:44 08/19/18 18:24 08/19/18 21:14 Bedside Glucose 234 H 223 H 265 H 363 H Test 08/19/18 22:32 08/20/18 01:49 08/20/18 06:15 08/20/18 08:20 Bedside Glucose 358 H 325 H 261 H 290 H Subjective 24 Hr Interval Summary Free Text/Dictation She reports his breathing is a little bit better but when he tried to shower today he became significantly short of breath and used his own inhalers that he had brought from home. Constitutional: no complaints Respiratory: cough, shortness of breath, wheezing Cardiovascular: no complaints Gastrointestinal: no complaints Genitourinary: no complaints Musculoskeletal: no complaints Exam/Review of Systems Exam Vitals Vital Signs Date Temp Pulse Resp B/P (MAP) Pulse Ox O2 O2 Flow FiO2 Time Delivery Rate 08/20/18 97 18 94 21 09:33 08/20/18 97.7 109/69 Room Air 08:07 (82) 08/19/18 2.0 01:50 Intake and Output 08/19/18 08/19/18 08/20/18 1515:00 23:00 07:00 IntakeIntake Total 500 ml 1050 ml OutputOutput Total 980 ml BalanceBalance 500 ml 70 ml Constitutional: alert, oriented Neck: supple, non-tender Respiratory: normal air movement, wheezing Cardiovascular: regular rate and rhythm, nl pulses Results Results 24hrs Laboratory Tests Test 08/19/18 12:54 08/19/18 16:44 08/19/18 18:24 08/19/18 21:14 Bedside Glucose 234 H 223 H 265 H 363 H Test 08/19/18 22:32 08/20/18 01:49 08/20/18 06:15 08/20/18 08:20 Bedside Glucose 358 H 325 H 261 H 290 H Medications Medication Current Medications Albuterol/ Ipratropium (Duoneb) 3 ml Q4HWA RESP THERAPY HHN Last administered on 08/20/18at 09:12; Admin Dose 3 ML; Start 08/18/18 at 13:00 Albuterol/ Ipratropium (Duoneb) 3 ml Q2H RESP THERAPY PRN HHN WHEEZING Last administered on 08/20/18at 06:19; Admin Dose 3 ML; Start 08/18/18 at 12:00 Fluticasone/ Vilanterol (Breo Ellipta 200-25 Mcg Inh) 1 inh DAILY INH Last administered on 08/20/18at 08:56; Admin Dose 1 INH; Start 08/18/18 at 14:00 IV Flush (NS 3 ml) 3 ml PER PROTOCOL IV ; Start 08/18/18 at 12:00 Acetaminophen (Tylenol Tab) 650 mg Q6H PRN PO .PAIN 1-3 OR TEMP; Start 08/18/18 at 12:00 Famotidine (Pepcid) 20 mg Q12 PO Last administered on 08/20/18at 08:57; Admin Dose 20 MG; Start 08/18/18 at 21:00 Enoxaparin Sodium (Lovenox) 40 mg DAILY SC Last administered on 08/20/18at 08:57; Admin Dose 40 MG; Start 08/18/18 at 12:00 Diagnostic Test (Pha) (Accu-Chek) 1 ea 02 XX ; Start 08/19/18 at 02:00 Insulin Aspart (Novolog Insulin Pen) NOVOLOG *MODERATE* ALGORITHM WITH MEALS BEDTIME SC Last administered on 08/20/18 08:56; Admin Dose 8 UNIT; Start 08/18/18 at 17:55 Montelukast Sodium (Singulair) 10 mg HS PO Last administered on 08/19/18at 21:15; Admin Dose 10 MG; Start 08/18/18 at 21:00 Methylprednisolone Sodium Succinate (Solu-Medrol) 40 mg Q8 IV Last administered on 08/20/18at 06:18; Admin Dose 40 MG; Start 08/19/18 at 15:00 Insulin Human NPH (Humulin N) 8 unit Q8 SC Last administered on 08/20/18at 06:18; Admin Dose 8 UNIT; Start 08/19/18 at 15:00 ISIDRO ESCOBEDO MD Aug 20, 2018 11:19
[2018-08-20] MEDS: metFORMIN 500 MG TAB PO SCH ×2 (12:51→17:54)
[2018-08-20] MEDS: TIOTROPIUM 18 MCG CAPSULE INHA DEV INH SCH (12:53)
--- NOTE | 2018-08-20 13:56 | CONS ---
Consult Date/Type/Reason Admit Date/Time Aug 18, 2018 at 10:51 Initial Consult Date Type of Consultation: Pulm Date/Time of Note DATE: 08/20/18 TIME: 13:55 Subjective Slightly better today. No events Objective Vitals Vital Signs Date Temp Pulse Resp B/P (MAP) Pulse Ox O2 O2 Flow FiO2 Time Delivery Rate 08/20/18 93 18 96 21 12:25 08/20/18 97.7 109/69 Room Air 08:07 (82) 08/19/18 2.0 01:50 Intake and Output 08/19/18 08/19/18 08/20/18 1515:00 23:00 07:00 IntakeIntake Total 500 ml 1050 ml OutputOutput Total 980 ml BalanceBalance 500 ml 70 ml Exam HEENT: Neck supple; no JVD; no LAD CVS: RRR, S1 and S2 CHEST: + exp wheezing b/l ABD: Soft, NT, + BS EXT: No c/c/e Results/Medications Result Diagram: 08/19/18 0455 08/19/18 0455 Results 24 hrs Laboratory Tests Test 08/19/18 16:44 08/19/18 18:24 08/19/18 21:14 08/19/18 22:32 Bedside Glucose 223 H 265 H 363 H 358 H Test 08/20/18 01:49 08/20/18 06:15 08/20/18 08:20 08/20/18 12:34 Bedside Glucose 325 H 261 H 290 H 315 H Home Meds Active Scripts Albuterol Sulfate* (Ventolin HFA*) 18 Gm Hfa.aer.ad, 2 PUFF INHALATION Q4H, #1 INHALER Prov:KARISSA KIDD PA-C 12/14/17 Discontinued Scripts Prednisone* (Prednisone*) 20 Mg Tab, 40 MG PO DAILY for 4 Days, TAB Prov:ROSALBA PINA MD 02/18/18 Prednisone* (Prednisone*) 20 Mg Tab, 40 MG PO DAILY for 4 Days, TAB Prov:KARISSA KIDD PA-C 12/14/17 Medications Current Medications Albuterol/ Ipratropium (Duoneb) 3 ml Q4HWA RESP THERAPY HHN Last administered on 08/20/18at 12:16; Admin Dose 3 ML; Start 08/18/18 at 13:00 Albuterol/ Ipratropium (Duoneb) 3 ml Q2H RESP THERAPY PRN HHN WHEEZING Last administered on 08/20/18 06:19; Admin Dose 3 ML; Start 08/18/18 at 12:00 Fluticasone/ Vilanterol (Breo Ellipta 200-25 Mcg Inh) 1 inh DAILY INH Last administered on 08/20/18 08:56; Admin Dose 1 INH; Start 08/18/18 at 14:00 IV Flush (NS 3 ml) 3 ml PER PROTOCOL IV ; Start 08/18/18 at 12:00 Acetaminophen (Tylenol Tab) 650 mg Q6H PRN PO .PAIN 1-3 OR TEMP; Start 08/18/18 at 12:00 Famotidine (Pepcid) 20 mg Q12 PO Last administered on 08/20/18 08:57; Admin Dose 20 MG; Start 08/18/18 at 21:00 Enoxaparin Sodium (Lovenox) 40 mg DAILY SC Last administered on 08/20/18 08:57; Admin Dose 40 MG; Start 08/18/18 at 12:00 Diagnostic Test (Pha) (Accu-Chek) 1 ea 02 XX ; Start 08/19/18 at 02:00 Insulin Aspart (Novolog Insulin Pen) NOVOLOG *MODERATE* ALGORITHM WITH MEALS BEDTIME SC Last administered on 08/20/18 12:55; Admin Dose 10 UNIT; Start 08/18/18 at 17:55 Montelukast Sodium (Singulair) 10 mg HS PO Last administered on 08/19/18 21:15; Admin Dose 10 MG; Start 08/18/18 at 21:00 Methylprednisolone Sodium Succinate (Solu-Medrol) 40 mg Q8 IV Last administered on 08/20/18 06:18; Admin Dose 40 MG; Start 08/19/18 at 15:00 Insulin Human NPH (Humulin N) 12 unit Q8 SC ; Start 08/20/18 at 14:00 Tiotropium [place] (Spiriva) 1 inh DAILY INH Last administered on 08/20/18 12:53; Admin Dose 1 INH; Start 08/20/18 at 12:30 Metformin HCl (Glucophage) 500 mg BID WITH MEALS PO Last administered on 08/20/18 12:51; Admin Dose 500 MG; Start 08/20/18 at 11:30 Diagnostic Test (Pha) (Accu-Chek) 1 ea AC MEALS AND BEDTIME XX ; Start 08/20/18 at 17:25 Assessment/Plan Assessment/Plan (Daily) IMP: 1. Acute Asthma Exacerbation RECS: 1. Taper solumedrol; continue duonebs 2. Need to ensure appropriate outpatient controller regimen to include ICS/LABA and LTRA 3. FROILAN VARNER MD Aug 20, 2018 13:56
[2018-08-20 14:32] VITALS: BP 122/66; PULSE 84; RESP 18
--- NOTE | 2018-08-20 18:48 | NUR ---
RN NOTES PT IS STABLE, BREATHING TX ORDERED, STILL WITH SOB WITH ACTIVITIES. BG ELEVATED, DR ESCOBEDO MADE CHANGES IN INSULIN AND METFORMIN ORDERED. CALL LIGHT WITHIN REACH, ENCOURAGED PT TO CALL FOR ASSISTANCE.
[2018-08-20 20:28] VITALS: BP 100/57; PULSE 78; RESP 18
[2018-08-20] MEDS: MONTELUKAST 10 MG TAB PO SCH (21:17)
[2018-08-21] MEDS: ACCU-CHEK XX SCH ×5 (01:35→21:27)
[2018-08-21 01:52] VITALS: BP 106/62; PULSE 90; RESP 18
[2018-08-21] MEDS: METHYLPREDNISOLONE 40 MG INJ IV SCH (06:10)
[2018-08-21] MEDS: NPH, HUMAN INSULIN ISOPHANE 3ML VIAL SC SCH (06:12)
--- NOTE | 2018-08-21 06:31 | NUR ---
EOSS: PATIENT'S BLOOD SUGAR BEEN MONITORED ORDERED. CURRENT BLOOD SUGAR 228, HUMULIN N 12 UNITS GIVEN ORDERED. SOLUMEDROL IV GIVEN ORDERED. HOURLY ROUNDING RENDERED. FALL PRECAUTION OBSERVED. CALL LIGHT WITHIN REACH.
[2018-08-21] MEDS: ALBUTEROL/IPRATROPIUM (NEB) 3 ML AMP HHN SCH ×4 (07:44→21:10)
[2018-08-21 07:49] VITALS: BP 110/71; PULSE 85; RESP 19
[2018-08-21] MEDS: metFORMIN 500 MG TAB PO SCH ×2 (08:35→17:39)
[2018-08-21] MEDS: TIOTROPIUM 18 MCG CAPSULE INHA DEV INH SCH (08:35)
[2018-08-21] MEDS: FLUTICASONE/VILANTEROL 200-25 INH DEVICE INH SCH (08:35)
[2018-08-21] MEDS: FAMOTIDINE 20 MG TAB PO SCH ×2 (08:35→20:27)
[2018-08-21] MEDS: INSULIN ASPART [NOVOLOG] 3 ML PEN SC SCH ×6 (08:37→20:25)
[2018-08-21] MEDS: ENOXAPARIN 40 MG/0.4 ML SYG SC SCH (08:38)
--- NOTE | 2018-08-21 11:17 | PN ---
Date/Time of Note Date/Time of Note DATE: 08/21/18 TIME: 11:11 Assessment/Plan VTE Prophylaxis Risk score (from Nsg)>0 risk: 2 SCD applied (from Nsg): No SCD contraindicated: other (see nsg notes) Pharmacological prophylaxis: LMWH Lines/Catheters IV Catheter Type (from Nrsg): Saline Lock Urinary Cath still in place: No Assessment/Plan Hospital Course SUBJECTIVE: OBJECTIVE: Vital signs-see below PHYSICAL EXAM: Constitutional: Well-developed, adequately built, lying in bed with wheezing, cough and slight increased work of breathing. Psych: nl mood/affect, no complaints Head: atraumatic, normocephalic Eyes: nl conjunctiva, nl sclera ENMT: mucosa pink and moist, nl external ears & nose Neck: non-tender, supple Respiratory: +Diffuse wheezing bilaterally. [place]OD+ Cardiovascular: nl pulses, regular rate and rhythm Gastrointestinal: non-tender, soft, bowel sounds active in all 4 quadrants. Musculoskeletal/extremities: nl extremities to inspection, motor strength equal bilaterally, no focal deficit. Normal pulses,no cyanosis, no edema. Neurological: Alert oriented 3,nl speech, nl strength Skin: nl turgor ASSESSMENT/PLAN: 62-year-old male who is also a former smoker, diagnosed with asthma 2 years ago, here with worsening wheezing, SOB, cough. 1. Severe acute asthma exacerbation. -Now stable. Continue PRN BERNARD, Breo Ellipta and Singulair. -Titrate IV steroids to prednisone. -Follow-up with pulmonary after discharge for further outpatient asthma management/diagnostic testings. 2. New onset type 2 diabetes. -A1c noted. Patient with hyperglycemia, status post steroid... -Hoping with steroid titration, his blood sugar well stabilized. Recommend starting Lantus, pre-meal insulin. Diabetic education consult. Will tune patient for metformin plus or minus another agent for outpatient management. 3. Obesity with BMI 31.8 -Weight reduction advised DVT prophylaxis: Lovenox PUD prophylaxis: Pepcid CODE STATUS: Full code Diet: Regular. Disposition: Overall, patient with improvement. Monitor blood sugar, have diabetic education and treatment for discharge planning in a.m. with outpatient asthma management and diabetes control. Patient was seen in collaboration with Result Diagram: 08/19/18 0458 08/19/18 0455 Results 24hrs Laboratory Tests Test 08/20/18 12:34 08/20/18 17:32 08/20/18 21:14 08/21/18 01:32 Bedside Glucose 315 H 284 H 257 H 247 H Test 08/21/18 06:08 08/21/18 08:31 Bedside Glucose 228 H 236 H Exam/Review of Systems Exam Vitals Vital Signs Date Temp Pulse Resp B/P (MAP) Pulse Ox O2 O2 Flow FiO2 Time Delivery Rate 08/21/18 97.4 85 19 110/71 95 07:49 (84) 08/21/18 21 07:46 08/20/18 Room Air 14:32 08/19/18 2.0 01:50 Intake and Output 08/20/18 08/20/18 08/21/18 1515:00 23:00 07:00 IntakeIntake Total 800 ml 250 ml BalanceBalance 800 ml 250 ml Results Results 24hrs Laboratory Tests Test 08/20/18 12:34 08/20/18 17:32 08/20/18 21:14 08/21/18 01:32 Bedside Glucose 315 H 284 H 257 H 247 H Test 08/21/18 06:08 08/21/18 08:31 Bedside Glucose 228 H 236 H Medications Medication Current Medications Albuterol/ Ipratropium (Duoneb) 3 ml Q4HWA RESP THERAPY HHN Last administered on 08/21/18at 07:44; Admin Dose 3 ML; Start 08/18/18 at 13:00 Albuterol/ Ipratropium (Duoneb) 3 ml Q2H RESP THERAPY PRN HHN WHEEZING Last administered on 08/20/18at 06:19; Admin Dose 3 ML; Start 08/18/18 at 12:00 Fluticasone/ Vilanterol (Breo Ellipta 200-25 Mcg Inh) 1 inh DAILY INH Last administered on 08/21/18 08:35; Admin Dose 1 INH; Start 08/18/18 at 14:00 IV Flush (NS 3 ml) 3 ml PER PROTOCOL IV ; Start 08/18/18 at 12:00 Acetaminophen (Tylenol Tab) 650 mg Q6H PRN PO .PAIN 1-3 OR TEMP; Start 08/18/18 at 12:00 Famotidine (Pepcid) 20 mg Q12 PO Last administered on 08/21/18at 08:35; Admin Dose 20 MG; Start 08/18/18 at 21:00 Enoxaparin Sodium (Lovenox) 40 mg DAILY SC Last administered on 08/21/18 08:38; Admin Dose 40 MG; Start 08/18/18 at 12:00 Diagnostic Test (Pha) (Accu-Chek) 1 ea 02 XX Last administered on 08/21/18 01:35; Admin Dose 1 EA; Start 08/19/18 at 02:00 Insulin Aspart (Novolog Insulin Pen) NOVOLOG *MODERATE* ALGORITHM WITH MEALS BEDTIME SC Last administered on 08/21/18 08:37; Admin Dose 6 UNIT; Start 08/18/18 at 17:55 Montelukast Sodium (Singulair) 10 mg HS PO Last administered on 08/20/18 21:17; Admin Dose 10 MG; Start 08/18/18 at 21:00 Methylprednisolone Sodium Succinate (Solu-Medrol) 40 mg Q8 IV Last administered on 08/21/18 06:10; Admin Dose 40 MG; Start 08/19/18 at 15:00 Insulin Human NPH (Humulin N) 12 unit Q8 SC Last administered on 08/21/18 06:12; Admin Dose 12 UNIT; Start 08/20/18 at 14:00 Tiotropium [place] (Spiriva) 1 inh DAILY INH Last administered on 08/21/18 08:35; Admin Dose 1 INH; Start 08/20/18 at 12:30 Metformin HCl (Glucophage) 500 mg BID WITH MEALS PO Last administered on 08/21/18 08:35; Admin Dose 500 MG; Start 08/20/18 at 11:30 Diagnostic Test (Pha) (Accu-Chek) 1 ea AC MEALS AND BEDTIME XX Last administered on 08/21/18 08:30; Admin Dose 1 EA; Start 08/20/18 at 17:25 CELIA SERRATO NP Aug 21, 2018 11:17
[2018-08-21] MEDS ORDERED: INSULIN GLARGINE [LANTus] (100 UNITS/ML) SYG SC ONE (11:30)
[2018-08-21] MEDS ORDERED: metFORMIN 500 MG TAB PO SCH (11:30)
[2018-08-21 13:10] VITALS: BP 112/64; PULSE 92; RESP 19
--- NOTE | 2018-08-21 15:00 | NUR ---
Diabetes Education Referral: Thank you for the referral. HbA1c 8.6%; 95kg; BMI 31; Cr 0.87; Admitting serum glucose 328 mg/dl Pt stated his father developed T2DM at age 90. Pt originally stated he was never told he had DM but then later mentioned he had been told when he was younger the was "on the board[place]". 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 Prior to this admission pt had been taking Prednisone for about 1 month. Pt very concerned with the cause of the DM and the cure. With the use of handouts discussed at length with patient at bedside how diabetes works in the body, where the glucose comes from, how food breaks down into glucose, and how different medications (Metformin, Glipizide, and steroids) work. Reviewed glucose targets (pre and post meal), reviewed the different food groups and when/how to manage glucose by adjusting the carbohydrates and proteins. Discussed how different factors cause extra glucose released from the liver and factors that cause insulin resistance. Discussed how an increase in activity can assist in lowering glucose levels and reduce insulin requirements. Reviewed signs and symptoms of hypo/hyperglycemia and treatment. After eligibility check, pt provided a Freestyle Lite glucometer. Reviewed how to use glucometer, change date and time, load lancet devices and how to correctly complete a glucose reading. Pt completed a finger stick; current result 227 mg/dl. Resources were given to pt for future follow up. All questions answered.
--- NOTE | 2018-08-21 15:25 | CONS ---
Consult Date/Type/Reason Admit Date/Time Aug 18, 2018 at 10:51 Initial Consult Date Type of Consult Pulmonary Date/Time of Note DATE: 08/21/18 TIME: 15:24 Subjective Comfortable this morning. Sitting up in chair no respiratory distress. Objective Vital Signs Date Temp Pulse Resp B/P (MAP) Pulse Ox O2 O2 Flow FiO2 Time Delivery Rate 08/21/18 97.4 92 19 112/64 93 13:10 (80) 08/21/18 21 07:46 08/20/18 Room Air 14:32 08/19/18 2.0 01:50 Intake and Output 08/20/18 08/20/18 08/21/18 1515:00 23:00 07:00 IntakeIntake Total 800 ml 250 ml BalanceBalance 800 ml 250 ml Exam GENERAL well-nourished well-developed gentleman comfortable at rest no acute distress: VITAL SIGNS: per chart NECK: Supple. No JVD or lymphadenopathy. CARDIAC EXAM: S1, S2. No added sounds or murmurs. CHEST: Diminished air entry bilaterally with few expiratory wheezes ABDOMEN: Soft, nontender. No guarding or rebound. EXTREMITIES: No cyanosis, clubbing or edema. NEUROLOGIC: Generalized weakness. No focal deficits. Vent Setting Fraction of Inspired Oxygen pe: 21 Results/Medications Result Diagram: 08/19/1845408/19/185 Results 24 hrs Laboratory Tests Test 08/20/18 17:32 08/20/18 21:14 08/21/18 01:32 08/21/18 06:08 Bedside Glucose 284 H 257 H 247 H 228 H Test 08/21/18 08:31 08/21/18 12:47 Bedside Glucose 236 H 301 H Medications Current Medications Albuterol/ Ipratropium (Duoneb) 3 ml Q4HWA RESP THERAPY HHN Last administered on 08/21/18at 07:44; Admin Dose 3 ML; Start 08/18/18 at 13:00 Albuterol/ Ipratropium (Duoneb) 3 ml Q2H RESP THERAPY PRN HHN WHEEZING Last administered on 08/20/18at 06:19; Admin Dose 3 ML; Start 08/18/18 at 12:00 Fluticasone/ Vilanterol (Breo Ellipta 200-25 Mcg Inh) 1 inh DAILY INH Last administered on 2/11/19at 08:35; Admin Dose 1 INH; Start 08/18/18 at 14:00 IV Flush (NS 3 ml) 3 ml PER PROTOCOL IV ; Start 08/18/18 at 12:00 Acetaminophen (Tylenol Tab) 650 mg Q6H PRN PO .PAIN 1-3 OR TEMP; Start 08/18/18 at 12:00 Famotidine (Pepcid) 20 mg Q12 PO Last administered on 08/21/18 08:35; Admin Dose 20 MG; Start 08/18/18 at 21:00 Enoxaparin Sodium (Lovenox) 40 mg DAILY SC Last administered on 08/21/18 08:38; Admin Dose 40 MG; Start 08/18/18 at 12:00 Diagnostic Test (Pha) (Accu-Chek) 1 ea 02 XX Last administered on 08/21/18 01:35; Admin Dose 1 EA; Start 08/19/18 at 02:00 Insulin Aspart (Novolog Insulin Pen) NOVOLOG *MODERATE* ALGORITHM WITH MEALS BEDTIME SC Last administered on 08/21/18 12:55; Admin Dose 10 UNIT; Start 08/18/18 at 17:55 Montelukast Sodium (Singulair) 10 mg HS PO Last administered on 08/20/18 21:17; Admin Dose 10 MG; Start 08/18/18 at 21:00 Tiotropium [place] (Spiriva) 1 inh DAILY INH Last administered on 08/21/18 08:35; Admin Dose 1 INH; Start 08/20/18 at 12:30 Metformin HCl (Glucophage) 500 mg BID WITH MEALS PO Last administered on 08/21/18 08:35; Admin Dose 500 MG; Start 08/20/18 at 11:30 Diagnostic Test (Pha) (Accu-Chek) 1 ea AC MEALS AND BEDTIME XX Last administered on 08/21/18 12:40; Admin Dose 1 EA; Start 08/20/18 at 17:25 Prednisone (Prednisone) 40 mg BID PO ; Start 08/21/18 at 21:00 Insulin Glargine (Lantus) 24 units DAILY@0800 SC ; Start 08/22/18 at 08:00 Insulin Aspart (Novolog Insulin Pen) 8 unit WITH MEALS SC Last administered on 08/21/18 12:56; Admin Dose 8 UNIT; Start 08/21/18 at 11:40 Assessment/Plan Hospital Course (Demo Recall) IMP: 1. Acute Asthma Exacerbation RECS: 1. Taper solumedrol; continue duonebs 2. Need to ensure appropriate outpatient controller regimen to include ICS/LABA and LTRA 3. OOB Hopefully stable for discharge tomorrow. LILIANA GALVIN MD, [facility] Aug 21, 2018 15:25
--- NOTE | 2018-08-21 18:08 | NUR ---
END OF SHIFT NOTE: Pt with no complaints of pain. Breathing treatments maintained. AccuChecks done ACHS, insulin coverage done per order, conservation educator to the bedside. VSS, call quintanilla within reach, hourly rounding maintained.
[2018-08-21 19:34] VITALS: BP 102/58; PULSE 85; RESP 18
[2018-08-21] MEDS: MONTELUKAST 10 MG TAB PO SCH (20:26)
[2018-08-21] MEDS: predniSONE 20 MG TAB PO SCH (20:26)
[2018-08-22 01:44] VITALS: BP 113/55; PULSE 67; RESP 18
[2018-08-22] MEDS: ACCU-CHEK XX SCH ×3 (02:10→12:30)
--- NOTE | 2018-08-22 06:07 | NUR ---
EOSS: Patient AOX4, stable hemodynamically, afebrile, cooperative. Currently patient resting comfortably in the bed with eyes closed in no distress, no c/o pain. Patient comfortable at rest , however has mild SOB with exertion, denies nausea or vomiting. Fall and injury precautions observed during the shift, repositioning done. Patient instructed to call for assistance. All scheduled medications administered per MD orders. All patient's needs attended. Continuous monitoring provided. Will report to the next shift.
[2018-08-22] MEDS ORDERED: INSULIN GLARGINE [LANTus] (100 UNITS/ML) SYG SC SCH (08:00)
[2018-08-22] MEDS: ALBUTEROL/IPRATROPIUM (NEB) 3 ML AMP HHN SCH (08:35)
[2018-08-22 08:41] VITALS: BP 108/64; PULSE 80; RESP 18
[2018-08-22] MEDS: FAMOTIDINE 20 MG TAB PO SCH (08:50)
[2018-08-22] MEDS: predniSONE 20 MG TAB PO SCH (08:50)
[2018-08-22] MEDS: TIOTROPIUM 18 MCG CAPSULE INHA DEV INH SCH (08:51)
[2018-08-22] MEDS: metFORMIN 500 MG TAB PO SCH (08:51)
[2018-08-22] MEDS: INSULIN ASPART [NOVOLOG] 3 ML PEN SC SCH ×4 (08:54→12:30)
[2018-08-22] MEDS: FLUTICASONE/VILANTEROL 200-25 INH DEVICE INH SCH (08:56)
[2018-08-22] MEDS: ENOXAPARIN 40 MG/0.4 ML SYG SC SCH (09:00)
--- NOTE | 2018-08-22 11:40 | PDOCDIS ---
Discharge Instructions CONDITION [id number] Patient Condition: [id number] Stable HOME CARE INSTRUCTIONS: [id number] Your diet recommendation is: [id number] carbohydrate-controlled diet ACTIVITY: [id number] Activity Restrictions: [id number] No Restrictions [id number] Bathing Restrictions: [id number] Shower FOLLOW UP/APPOINTMENTS Follow-up Plan Follow-up with in his office in 1 week. [address] [address] Office Follow-up w/ primary care physician in 1 week. CELIA SERRATO NP Aug 22, 2018 11:40
[2018-08-22] MEDS ORDERED: GLIP5TAB13 PO (11:51)
[2018-08-22] MEDS ORDERED: METF-849 PO (11:51)
[2018-08-22] MEDS ORDERED: ALBU2.5V3 NEB (11:51)
[2018-08-22] MEDS ORDERED: FLUT1BLS INH (11:51)
[2018-08-22] MEDS ORDERED: OMEP20CA16 PO (11:51)
[2018-08-22] MEDS ORDERED: MONT10TA24 PO (11:51)
[2018-08-22] MEDS ORDERED: PRED10TA PO (11:51)
[2018-08-22] MEDS ORDERED: TIOT18CA INH (11:51)
--- NOTE | 2018-08-22 11:57 | DS ---
Date/Time of Note Date/Time of Note DATE: 08/22/18 TIME: 11:56 Discharge Summary Admission/Discharge Info Admit Date/Time Aug 18, 2018 at 10:51 Discharge Date/Time Discharge Diagnosis 1. Severe acute asthma exacerbation.stable 2. New onset type 2 diabetes. 3. Obesity with BMI 31.8 Patient Condition: Stable Consults , pulmonary Procedures Chest x-ray 08/18/2018. IMPRESSION: Mild bibasilar linear atelectatic changes. Hx of Present Illness 82-year-old male diagnosed with asthma 2 years ago, former smoker, here with worsening wheezing, shortness of breath, and nonproductive cough despite taking his rescue nebulizer. Patient was just treated with a cortisone couple weeks ago. In the ER, patient was noted with stable labs except for blood sugar 328. No chest x-ray done. Patient was given albuterol and prednisone 60 mg p.o. in the ER and was admitted. Patient denied chest pain, palpitation, nausea, vomiting, abdominal pain, speech difficulties, vision changes, dizziness, fever, chills or other constitutional symptoms. Hospital Course 62-year-old male who is also a former smoker, diagnosed with asthma 2 years ago, here with worsening wheezing, SOB, cough. Patient did well on bronchodilator, tapering steroids,ICS/LABA and LTRA. He was also noted with new onset poorly controlled diabetes for which he had diabetic education and was managed with insulin. He was then transitioned to oral dual agents for outpatient management. At this time, patient with no further wheezing, he does not require any supplemental oxygen. Labs and vital signs stable. Patient is medically stable for discharge with a asthma maintenance management treatment, pulmonary follow-up and diabetes management. Patient and family verbalized instructions. Approximately 60 minutes was spent on coordinating the discharge on this patient. Patient was seen in collaboration with Dr. Nice. Home Meds Active Scripts Prednisone* (Prednisone*) 10 Mg Tab, 10 MG PO DAILY, #6 TAB Take 30 mg (3 pills) on 08/23/2018, then 20 mg (2 pills) on 08/24/2018, then 10 mg (1 pill) on 08/25/2018 and then stop. Prov:CELIA SERRATO V. [employer] 08/22/18 Albuterol Sulfate* (Albuterol Sulfate* Neb) 0.083%-3 Ml Neb, 2.5 MG NEB Q3H PRN for WHEEZING AND SOB, #30 VIAL Prov:SERRATO,CELIA [employer] 08/22/18 Omeprazole* (Omeprazole*) 20 Mg Capsule.dr, 20 MG PO DAILY, #30 CAP Prov:SERRATO,CELIA [employer] 08/22/18 Glipizide* (Glipizide*) 5 Mg Tablet, 2.5 MG PO AC BREAKFAST, #30 TAB Prov:SERRATO,CELIA [employer] 08/22/18 Metformin* (Glucophage*) 500 Mg Tab, 500 MG PO BID WITH MEALS, #60 TAB Prov:SERRATO,CELIA [employer] 08/22/18 Montelukast Sodium* (Montelukast Sodium*) 10 Mg Tablet, 10 MG PO HS, #30 TAB Prov:SERRATO,CELIA [employer] 08/22/18 Fluticasone/Vilanterol (Breo Ellipta 200-25 Mcg INH) 1 Each Blst.w.dev, 1 INH INH DAILY, #1 INHALER Prov:SERRATO,CELIA [employer] 08/22/18 Tiotropium [place]* (Spiriva*) 18 Mcg Cap.w.dev, 1 INH INH DAILY, #1 INH Prov:SERRATO,CELIA [employer] 08/22/18 Albuterol Sulfate* (Ventolin HFA*) 18 Gm Hfa.aer.ad, 2 PUFF INHALATION Q4H, #1 INHALER Prov:KARISSA KIDD PA-C 12/14/17 Discontinued Scripts Prednisone* (Prednisone*) 20 Mg Tab, 40 MG PO DAILY for 4 Days, TAB Prov:ROSALBA PINA MD 02/18/18 Prednisone* (Prednisone*) 20 Mg Tab, 40 MG PO DAILY for 4 Days, TAB Prov:KARISSA KIDD PA-C 12/14/17 Follow-up Plan Follow-up with in his office in 1 week. [address] [facility] [address] [place] [address] Office Follow-up w/ primary care physician in 1 week. Primary Care Provider Not On Staff Doctor Pending Labs Laboratory Tests Test 08/21/18 12:47 08/21/18 17:38 08/21/18 20:22 08/22/18 01:32 Bedside 301 202 233 206 Glucose mg/dL (70-220) mg/dL (70-220) mg/dL (70-220) mg/dL (70-220) Test 08/22/18 08:49 Bedside 260 Glucose mg/dL (70-220) CELIA SERRATO NP Aug 22, 2018 11:57
--- NOTE | 2018-08-22 12:27 | CONS ---
Consult Date/Type/Reason Admit Date/Time Aug 18, 2018 at 10:51 Initial Consult Date Type of Consult Pulmonary Date/Time of Note DATE: 08/22/18 TIME: 12:27 Subjective Patient better today. Comfortable less shortness of breath. Objective Vital Signs Date Temp Pulse Resp B/P (MAP) Pulse Ox O2 O2 Flow FiO2 Time Delivery Rate 08/22/18 98.4 80 18 108/64 92 Room Air 08:41 (79) 08/22/18 21 08:35 08/19/18 2.0 01:50 Intake and Output 08/21/18 08/21/18 08/22/18 1515:00 23:00 07:00 IntakeIntake Total 600 ml BalanceBalance 600 ml Exam GENERAL: VITAL SIGNS: per chart NECK: Supple. No JVD or lymphadenopathy. CARDIAC EXAM: S1, S2. No added sounds or murmurs. CHEST: clear bilaterally, No added sounds, rales or wheezes ABDOMEN: Soft, nontender. No guarding or rebound. EXTREMITIES: No cyanosis, clubbing or edema. NEUROLOGIC: Generalized weakness. No focal deficits. Vent Setting Fraction of Inspired Oxygen pe: 21 Results/Medications Result Diagram: 08/19/18 0455 08/19/18 0455 Results 24 hrs Laboratory Tests Test 08/21/18 12:47 08/21/18 17:38 08/21/18 20:22 08/22/18 01:32 Bedside Glucose 301 H 202 233 H 206 Test 08/22/18 08:49 Bedside Glucose 260 H Medications Current Medications Albuterol/ Ipratropium (Duoneb) 3 ml Q4HWA RESP THERAPY HHN Last administered on 08/22/18at 08:35; Admin Dose 3 ML; Start 08/18/18 at 13:00 Albuterol/ Ipratropium (Duoneb) 3 ml Q2H RESP THERAPY PRN HHN WHEEZING Last administered on 08/20/18at 06:19; Admin Dose 3 ML; Start 08/18/18 at 12:00 Fluticasone/ Vilanterol (Breo Ellipta 200-25 Mcg Inh) 1 inh DAILY INH Last administered on 08/22/18at 08:56; Admin Dose 1 INH; Start 08/18/18 at 14:00 IV Flush (NS 3 ml) 3 ml PER PROTOCOL IV ; Start 08/18/18 at 12:00 Acetaminophen (Tylenol Tab) 650 mg Q6H PRN PO .PAIN 1-3 OR TEMP; Start 08/18/18 at 12:00 Famotidine (Pepcid) 20 mg Q12 PO Last administered on 08/22/18 08:50; Admin Dose 20 MG; Start 08/18/18 at 21:00 Enoxaparin Sodium (Lovenox) 40 mg DAILY SC Last administered on 08/21/18 08:38; Admin Dose 40 MG; Start 08/18/18 at 12:00 Diagnostic Test (Pha) (Accu-Chek) 1 ea 02 XX Last administered on 08/22/18 02:10; Admin Dose 1 EA; Start 08/19/18 at 02:00 Insulin Aspart (Novolog Insulin Pen) NOVOLOG *MODERATE* ALGORITHM WITH MEALS BEDTIME SC Last administered on 08/22/18 08:54; Admin Dose 6 UNIT; Start 08/18/18 at 17:55 Montelukast Sodium (Singulair) 10 mg HS PO Last administered on 08/21/18 20:26; Admin Dose 10 MG; Start 08/18/18 at 21:00 Tiotropium [place] (Spiriva) 1 inh DAILY INH Last administered on 08/22/18 08:51; Admin Dose 1 INH; Start 08/20/18 at 12:30 Metformin HCl (Glucophage) 500 mg BID WITH MEALS PO Last administered on 08/22/18 08:51; Admin Dose 500 MG; Start 08/20/18 at 11:30 Diagnostic Test (Pha) (Accu-Chek) 1 ea AC MEALS AND BEDTIME XX Last administered on 08/22/18 07:20; Admin Dose 1 EA; Start 08/20/18 at 17:25 Prednisone (Prednisone) 40 mg BID PO Last administered on 08/22/18 08:50; Admin Dose 40 MG; Start 08/21/18 at 21:00 Insulin Glargine (Lantus) 24 units DAILY@0800 SC Last administered on 08/22/18 08:56; Admin Dose 24 UNITS; Start 08/22/18 at 08:00 Insulin Aspart (Novolog Insulin Pen) 8 unit WITH MEALS SC Last administered on 08/22/18 08:54; Admin Dose 8 UNIT; Start 08/21/18 at 11:40 Assessment/Plan Hospital Course (Demo Recall) IMP: 1. Acute Asthma Exacerbation RECS: 1. Taper solumedrol; continue duonebs Agree with discharge plan and medications discussed with primary team. Outpatient follow-up with me. LILIANA GALVIN MD, [facility] Aug 22, 2018 12:27
--- NOTE | 2018-08-22 12:58 | NUR ---
DISCHARGE: PATIENT D/CD AT 1258 FROM ROOM 407. PATIENT GIVEN DISCHARGE INSTRUCTIONS, PAPERWORK AND PRESCRIPTIONS. PATIENT WILL FOLLOW UP WITH PCP IN THE NEXT FEW DAYS. IV D/CD. VSS UPON D/C. PATIENT REFUSED ACCUCHECK BEFORE D/C, PATIENT DID NOT EAT LUNCH. PATIENT DENIED PAIN DURING D/C. PATIENT NO LONGER WHEEZY, BREATHING TX GIVEN IN AM. PATIENT D/CD VIA WHEELCHAIR WITH VOLUNTEER AND PATIENTS TO BRING HIM HOME. PATIENT ALERT AND IN NO VISIBLE DISTRESS.
== END 2018-08-22 12:58 | disposition home or self-care (01) | DRG 203 ==
LOC: E/R 08:09 → MS1 10:51
PROVIDERS: ADMIT Family Medicine; ATTEND Family Medicine
DX: J45.51 Severe persistent asthma with (acute) exacerbation (principal); J45.52 Severe persistent asthma with status asthmaticus; E11.65 Type 2 diabetes mellitus with hyperglycemia; Z87.891 Personal history of nicotine dependence; E66.9 Obesity, unspecified
CPT/HCPCS: 36415; 71045; 80048; 80053; 80061; 82962; 83036; 83735; 84100; 84443; 84484; 85025; 87400; 93005; 93306; 94640; 94664; J1650; J1815; J2920; J2930; J3475; J7512

== ENCOUNTER 2019-01-17 07:28 | Emergency (ER) | payer MEDICAID ==
[~2019-01-17] VITALS: Ht 165.1 cm; Wt 78.0 kg
[~2019-01-17 07:28] MED LIST changes: +ALBU2.5V3 NEB; +FLUT1BLS INH; +GLIP5TAB13 PO; +METF-849 PO; +MONT10TA24 PO; +OMEP20CA16 PO; +PRED10TA PO; -PRED20TA PO; +TIOT18CA INH
[2019-01-17 07:31] VITALS: BP 119/70; PULSE 78; RESP 18; Ht 165.1 cm; Wt 78.0 kg
[2019-01-17] MEDS ORDERED: KETOROLAC 60 MG INJ IM STA (07:42)
[2019-01-17] MEDS ORDERED: traMADol-APAP 37.5-325 1 TAB PO ONE (08:00)
[2019-01-17] MEDS ORDERED: NAPR-985 PO (08:04)
--- NOTE | 2019-01-17 08:09 | ERD ---
ER Documentation Chief Complaint Chief Complaint RIGHT WRIST PAIN HPI This is a 63-year-old male with a history of asthma and diabetes who presents ED with complaints of right wrist pain x5 days. Patient states that 5 days ago he was mixing cement repetitively with his right hand and he started to experience right lateral wrist pain. Patient admits to some swelling and painful range of motion. Denies fevers, chills, redness, lack of sensation, tingling, numbness and all other symptoms. Denies history of gout. No known drug allergies. ROS All systems reviewed and are negative except as per history of present illness. Medications Home Meds Active Scripts Naproxen* (Naprosyn*) 500 Mg Tablet, 500 MG PO BID PRN for PAIN AND/OR INFLAMMATION, #30 TAB Prov:ANGY GUTIERRES PA-C 01/17/19 Prednisone* (Prednisone*) 10 Mg Tab, 10 MG PO DAILY, #6 TAB Take 30 mg (3 pills) on 08/23/2018, then 20 mg (2 pills) on 08/24/2018, then 10 mg (1 pill) on 08/25/2018 and then stop. Prov:CELIA SERRATO NP 08/22/18 Albuterol Sulfate* (Albuterol Sulfate* Neb) 0.083%-3 Ml Neb, 2.5 MG NEB Q3H PRN for WHEEZING AND SOB, #30 VIAL Prov:CELIA SERRATO NP 08/22/18 Omeprazole* (Omeprazole*) 20 Mg Capsule.dr, 20 MG PO DAILY, #30 CAP Prov:CELIA SERRATO NP 08/22/18 Glipizide* (Glipizide*) 5 Mg Tablet, 2.5 MG PO AC BREAKFAST, #30 TAB Prov:CELIA SERRATO V. [employer] 08/22/18 Metformin* (Glucophage*) 500 Mg Tab, 500 MG PO BID WITH MEALS, #60 TAB Prov:CELIA SERRATO V. [employer] 08/22/18 Montelukast Sodium* (Montelukast Sodium*) 10 Mg Tablet, 10 MG PO HS, #30 TAB Prov:CELIA SERRATO V. [employer] 08/22/18 Fluticasone/Vilanterol (Breo Ellipta 200-25 Mcg INH) 1 Each Blst.w.dev, 1 INH IN H DAILY, #1 INHALER Prov:SERRATO,CELIA V. [employer] 08/22/18 Tiotropium [place]* (Spiriva*) 18 Mcg Cap.w.dev, 1 INH INH DAILY, #1 INH Prov:SERRATO,CELIA V. [employer] 08/22/18 Albuterol Sulfate* (Ventolin HFA*) 18 Gm Hfa.aer.ad, 2 PUFF INHALATION Q4H, #1 INHALER Prov:KARISSA KIDD PA-C 12/14/17 Allergies Allergies: Coded Allergies: No Known Allergies (Verified Allergy, Mild, 01/17/19) PMhx/Soc History of Surgery: Yes (L knee (2013)) Anesthesia Reaction: No Hx Neurological Disorder: No Hx Respiratory Disorders: Yes (Asthma) Hx Cardiac Disorders: No Hx Psychiatric Problems: No Hx Miscellaneous Medical Probl: No Hx Alcohol Use: No Hx Substance Use: No Hx Tobacco Use: No Smoking Status: Never smoker FmHx Family History: No diabetes Physical Exam Vitals Vital Signs Date Temp Pulse Resp B/P (MAP) Pulse Ox O2 O2 Flow FiO2 Time Delivery Rate 01/17/19 98.1 78 18 119/70 99 07:31 (86) Physical Exam Const: No acute distress Head: Atraumatic Eyes: Normal Conjunctiva ENT: Normal External Ears, Nose and Mouth. Neck: Full range of motion. No meningismus. Resp: No respiratory distress Ext: Upper Extremity right Skin: Mild swelling noted along right wrist Compartments: Soft Motor: Full active range of motion shoulder/elbow/wrist/hand Sensation: Intact shoulder/pinky/middle finger/thumb web space Bones: Moderate tenderness palpation along the right lateral wrist Snuffbox: Nontender Joints: No effusion Pulses/Perfusion: 2+ radial, Capillary refill < 2 seconds Sandra test positive on right side Neur: Awake and alert Psych: Normal Mood and Affect Results 24 hrs Current Medications Medications Dose Sig/Martha Start Time Status Last (Trade) Ordered Route PRN Stop Time Admin Dose Reason Admin Ketorolac 60 mg ONCE STAT 01/17/19 DC 01/17/19 Tromethamine IM 07:42 08:03 (Toradol) 01/17/19 07:45 Tramadol 1 tab ONCE ONCE 01/17/19 DC 01/17/19 HCl PO 08:00 08:01 (Ultracet) 01/17/19 08:01 Procedures/MDM ER COURSE: The patient was given Toradol and tramadol The medication was well tolerated and the patient reports improvement in symptoms. The patient was stable throughout ED course. I kept the patient and/or family informed of laboratory and diagnostic imaging results throughout the emergency room course. The patient was promptly evaluated and a treatment plan was devised based on H&P and other data. This plan was discussed with the patient who agreed and had no further questions or concerns prior to discharge. MEDICAL DECISION MAKING: This is a 63-year-old male who presents ED with complaints of right lateral wrist pain status post mixing cement repetitively 5 days ago. Sandra test is positive. This is likely de Quervain's tenosynovitis. Patient was placed in a Velcro wrist thumb support and given tramadol and Toradol in the emergency department. Patient was advised to rice and use nonsteroidal anti- inflammatories at home for pain. There is no red hot or swollen joint and there is no evidence of septic joint. History and physical examination other data not consistent with emergent processes including but not limited to fracture, dislocation, tendon rupture, ischemia, neurovascular injury, compartment syndrome, septic joint, avascular necrosis, osteomyelitis, necrotizing fasciitis, septic joint, septic arthritis, or other emergent conditions. Patient's vitals are stable and can be managed outpatient with close follow-up. Advised patient to follow-up with primary care in the next 48 hours. Return to ED with any worsening symptoms. DISPOSITION PLAN: We discussed follow up with the patient's primary care doctor within 24 to 48 hours. Patient counseled regarding my diagnostic impression and care plan. Prior to discharge all questions answered. Pt agrees with treatment plan and understands strict return precautions. Precautionary instructions provided including instructions to return to the ER if not improving or for any worsening or changing symptoms or concerns. SPECIALIST FOLLOW UP RECOMMENDED: None Patient has been advised to follow up with primary care in 1-2 days. Disclaimer: Inadvertent spelling and grammatical errors are likely due to EHR/dictation software use and do not reflect on the overall quality of patient care. Also, please note that the electronic time recorded on this note does not necessarily reflect the actual time of the patient encounter. Departure Diagnosis: Primary Impression: De Quervain's disease (tenosynovitis) Condition: Stable Patient Instructions: What Is De Quervain Tenosynovitis?, Treating De Quervain's Tenosynovitis, De Quervain Tenosynovitis Referrals: [facility] YOU HAVE RECEIVED A MEDICAL SCREENING EXAM AND THE RESULTS INDICATE THAT YOU DO NOT HAVE A CONDITION THAT REQUIRES URGENT TREATMENT IN THE EMERGENCY DEPARTMENT. FURTHER EVALUATION AND TREATMENT OF YOUR CONDITION CAN WAIT UNTIL YOU ARE SEEN IN YOUR DOCTORS OFFICE WITHIN THE NEXT 1-2 DAYS. IT IS YOUR RESPONSIBILITY TO MAKE AN APPOINTMENT FOR FOLOW-UP CARE. IF YOU HAVE A PRIMARY DOCTOR --you should call your primary doctor and schedule an appointment IF YOU DO NOT HAVE A PRIMARY DOCTOR YOU CAN CALL OUR PHYSICIAN REFERRAL HOTLINE AT IF YOU CAN NOT AFFORD TO SEE A PHYSICIAN YOU CAN CHOSE FROM THE FOLLOWING [facility] [address] [facility] [address] [facility] [facility] [address] [facility] [address] [facility]. [facility] [address] [facility]. [facility] [address] Additional Instructions: Patient advised to return to the ED immediately for new or worsening symptoms. Patient advised to follow up with primary care provider in the next 24-48 hours. Patient verbalized understanding and agrees with treatment plan and course of action. If patient has no primary care they may follow up with one of the [facility] listed on the following page or one of the options listed below [facility] [address] [place] [id number] or [facility] [address] [place] [address] or [facility] [address] [place] [address] ANGY GUTIERRES PA-C Jan 17, 2019 08:09
== END 2019-01-17 08:22 | disposition home or self-care (01) ==
LOC: FTE 07:28
DX: M65.4 Radial styloid tenosynovitis [de Quervain] (principal); J45.909 Unspecified asthma, uncomplicated; E11.9 Type 2 diabetes mellitus without complications; Z79.84 Long term (current) use of oral hypoglycemic drugs
CPT/HCPCS: 29125; 96372; J1885; Z7502; Z7610